=== PATIENT | male | born 1940 | race Caucasian/White ===

== ENCOUNTER 2021-09-10 13:39 | Observation (INO) | payer OTHER, SELFPAY ==
--- NOTE | 2021-09-10 13:43 | CTR_ITS ---
PROCEDURE INFORMATION: Exam: CT Head Without Contrast Exam date and time: 09/10/2021 1:47 PM Age: 81 years old Clinical indication: Injury or trauma; Fall; Blunt trauma (contusions or hematomas) TECHNIQUE: Imaging protocol: Computed tomography of the head without contrast. Radiation optimization: All CT scans at this facility use at least one of these dose optimization techniques: automated exposure control; mA and/or kV adjustment per patient size (includes targeted exams where dose is matched to clinical indication); or iterative reconstruction. COMPARISON: No relevant prior studies available. RADIATION DOSE METRICS: Total DLP (mGy-cm): 2166.72 FINDINGS: Brain: No intracranial hemorrhage. Moderate central and cortical atrophy and small vessel ischemic changes. Cerebral ventricles: No ventriculomegaly. Paranasal sinuses: Visualized sinuses are unremarkable. No fluid levels. Mastoid air cells: Visualized mastoid air cells are well aerated. Bones/joints: Unremarkable. No acute fracture. Soft tissues: Unremarkable. Vasculature: Unremarkable. CT/CT head wo con* [id number] IMPRESSION: No acute intracranial abnormality.
--- NOTE | 2021-09-10 13:57 | ED_ITS ---
HPI - General Adult General: Chief complaint: Fall Stated complaint: FELL HIT HEAD Time Seen by Provider: 09/10/21 13:57 History of Present Illness: Patient is a 81-year-old male with a history of baseline dementia, chronic arthritis of the knees presenting to the emergency room after an episode of fall. Patient was found down on the ground by please officer who called EMS and patient was brought to the emergency room. It is unclear how long patient has been down for. Baseline, patient is able to communicate and perform ADLs. However patient appears to be confused. He is AA O x1, rest of history limited. Patient denies any pain in the head or other source of injuries Onset:unknown Duration:ongoing Location:home Severity:moderate Associated symptoms: Deny chest pain, dyspnea, nausea, palpitations or vomiting Review of Systems General: Reports: ROS unobtainable due to mental status Card: Denies: chest pain or palpitations Resp: Denies: dyspnea or non-productive cough GI: Denies: abdominal pain, nausea or vomiting Musc: Denies: extremity pain Skin/Breast: Reports: other (no visible bruises or pain) Neuro: Reports: other (+confusion) Psych: Reports: other (Normal mood) [facility] ED PFSH: Medical History (Updated 09/10/21 @ 14:12 by Juan Francisco Crowe MD) Arthritis Social History (Updated 09/10/21 @ 14:12 by Juan Francisco Crowe MD) Smoking and tobacco status: unknown if ever smoked Alcohol intake: unknown Substance/Drug Use: unknown Physical Exam Const: COMMON NORMALS: alert HENMT: COMMON NORMALS: atraumatic HEAD & SCALP: atraumatic MOUTH: moist mucous membranes not abnormal Eye: COMMON NORMALS: EOMs intact bilaterally and conjunctivae normal CONJUNCTIVA: Yes conjunctivae normal Neck/C-Spine: COMMON NORMALS: full ROM and supple Resp: COMMON NORMALS: normal respiratory effort and clear to auscultation bilaterally AUSCULTATION: clear to auscultation bilaterally Cardio: COMMON NORMALS: regular rate RATE: regular rate GI: COMMON NORMALS: Soft to palpation and non-tender PALPATION: Yes Soft to palpation Extremity: COMMON NORMALS: full ROM Neuro: SENSORIUM/ORIENTATION: Yes alert MOTOR EXAM: No Abnormal motor strength present and Other motor observations present (no focal motor deficits) OTHER: AAO x1 to self only, occasionally following commands, moving all extremities, sensation grossly intact in all extremity, cranial nerves II to XII grossly intact Psych: COMMON NORMALS: speech normal SPEECH: Yes normal speech MOOD & AFFECT: Yes euthymic mood Course Vital Signs: Vital signs: Vital Signs Temperature 98.2 F 09/10/21 14:19 Pulse Rate 87 09/10/21 14:19 Respiratory Rate 95 H 09/10/21 14:19 Blood Pressure 118/79 09/10/21 14:19 Pulse Oximetry 94 09/10/21 14:19 MDM - General Adult Medical Decision Making 81-year-old male with unknown past medical history presents emergency after fall with concerns for altered mental status. On physical exam, patient is AAO x1, otherwise following commands and answer most questions appropriately. No signs of trauma. CTA negative for any acute findings. X-ray chest clear. White count 7.4.'s of lab within normal limit. Patient is noted to have acetaminophen level 7.6. We will repeat and follow. It is unclear what medication patient has been taking as we are not unable to reconcile medication at this time. We will trend acetaminophen level. UA pending at this time. Disposition: admission Lab Data : 09/10/21 15:20 09/10/21 15:[address] 09/10/21 13:43 IMPRESSION: No acute intracranial abnormality. Chest X-Ray 09/10/21 14:06 IMPRESSION: 1. No acute cardiopulmonary finding. Laboratory Results WBC 7.4 10^3/uL (4.0-10.0) 09/10/21 15:20 RBC 5.47 10^6/uL (4.1-5.3) H 09/10/21 15:20 Hgb 16.2 g/dL (11.7-16.6) 09/10/21 15:20 Hct 48.7 % (42.0-52.0) 09/10/21 15:20 MCV 89.0 fl (80-94) 09/10/21 15:20 MCH 29.6 pg (28.0-34.0) 09/10/21 15:20 MCHC 33.3 g/dL (30.0-36.0) 09/10/21 15:20 RDW 14.8 % (12.1-15.1) 09/10/21 15:20 Plt Count 267 10^3/cmm (130-400) 09/10/21 15:20 MPV 9.9 fL (7.4-10.4) 09/10/21 15:20 Neut % (Auto) 74.7 % 09/10/21 15:20 Lymph % (Auto) 15.9 % 09/10/21 15:20 Stark % (Auto) 6.3 % 09/10/21 15:20 Eos % (Auto) 2.7 % 09/10/21 15:20 Baso % (Auto) 0.1 % 09/10/21 15:20 Neut # (Auto) 5.56 10^3/uL (1.8-7.7) 09/10/21 15:20 Lymph # (Auto) 1.2 10^3/uL (0.8-4.8) 09/10/21 15:20 Stark # (Auto) 0.5 10^3/uL (0.2-0.9) 09/10/21 15:20 Eos # (Auto) 0.2 10^3/uL (0.0-0.8) 09/10/21 15:20 Baso # (Auto) 0.0 10^3/uL (0.0-0.1) 09/10/21 15:20 Nucleated RBC % (auto) 0 % 09/10/21 15:20 Nucleated RBCs # 0.0 /100WBC 09/10/21 15:20 Sodium 138 mmol/L (136-145) 09/10/21 15:20 Potassium 4.1 mmol/L (3.5-5.1) 09/10/21 15:20 Chloride 101 mmol/L (98-107) 09/10/21 15:20 Carbon Dioxide 28 mmol/L (22-29) 09/10/21 15:20 Anion Gap 13.1 (5-19) 09/10/21 15:20 BUN 16 mg/dL (8-23) 09/10/21 15:20 Creatinine 1.2 mg/dL (0.7-1.2) 09/10/21 15:20 GFR Calculation Not Reportable 09/10/21 15:20 Glucose 112 mg/dL (65-115) 09/10/21 15:20 Calculated Osmolality 288 mOsm/kg (285-295) 09/10/21 15:20 Calcium 9.3 mg/dL (8.5-10.5) 09/10/21 15:20 Total Bilirubin 0.5 mg/dL (0.15-1.2) 09/10/21 15:20 AST 21 U/L (0-40) 09/10/21 15:20 ALT 12 U/L (0-41) 09/10/21 15:20 Alkaline Phosphatase 106 IU/L (40-130) 09/10/21 15:20 Creatine Kinase 39 U/L (39-308) 09/10/21 15:20 Troponin T Baseline 33 ng/L (0-15) H 09/10/21 15:20 Total Protein 6.7 g/dL (6.6-8.7) 09/10/21 15:20 Albumin 3.9 g/dL (3.5-5.2) 09/10/21 15:20 Globulin 2.8 g/dL (1.3-4.6) 09/10/21 15:20 Lipase 39 U/L (13-60) 09/10/21 15:20 TSH 1.60 uIU/mL (0.27-4.20) 09/10/21 15:20 Salicylates < 0.3 mg/dL (3-10) L 09/10/21 15:20 Acetaminophen 6.8 ug/mL (10-30) L 09/10/21 15:20 Imaging Data Other Imaging: Radiologist's impression: [address] [address] XRay Report Signed Patient: Britton Mendoza Unit #: [id number] : 1940 Age/Sex: 81 / M ADM Date: 09/10/21 Loc: ER Room/Bed: Attending Dr: Ordering Provider/Ordering MD: Juan Francisco Crowe MD Date of Service: 09/10/21 Procedure(s): XR chest 1V portable [id number] Accession Number(s): [id number] Report Number: [id number] WS: [email or web address] Exam: XR chest 1V portable [id number] Date/Time of Exam: 09/10/2021 2:06 PM Reason For Exam: chest pain No priors. The lungs are clear and fully expanded. Normal cardiomediastinal silhouette for technique. No pleural effusions. Advanced DJD of the right shoulder. Remaining bony structures are intact. XR/XR chest 1V portable [id number] IMPRESSION: 1. No acute cardiopulmonary finding. ? Dictated By: Isrrael Hoang DO Signed By: Isrrael Hoang DO Signed Date/Time: 09/10/211423 DD/ [address] [address] [address] Scan Report Signed Patient: Britton Mendoza Unit #: [id number] : 1940 Age/Sex: 81 / M ADM Date: 09/10/21 Loc: ER Room/Bed: Attending Dr: Ordering Provider/Ordering MD: Juan Francisco Crowe MD Date of Service: 09/10/21 Procedure(s): CT head wo con* [id number] Accession Number(s): [id number] Report Number: [id number] PROCEDURE INFORMATION: Exam: CT Head Without Contrast Exam date and time: 09/10/2021 1:47 PM Age: 81 years old Clinical indication: Injury or trauma; Fall; Blunt trauma (contusions or hematomas) TECHNIQUE: Imaging protocol: Computed tomography of the head without contrast. Radiation optimization: All CT scans at this facility use at least one of these dose optimization techniques: automated exposure control; mA and/or kV adjustment per patient size (includes targeted exams where dose is matched to clinical indication); or iterative reconstruction. COMPARISON: No relevant prior studies available. RADIATION DOSE METRICS: Total DLP (mGy-cm): 2166.72 FINDINGS: Brain: No intracranial hemorrhage. Moderate central and cortical atrophy and small vessel ischemic changes. Cerebral ventricles: No ventriculomegaly. Paranasal sinuses: Visualized sinuses are unremarkable. No fluid levels. Mastoid air cells: Visualized mastoid air cells are well aerated. Bones/joints: Unremarkable. No acute fracture. Soft tissues: Unremarkable. Vasculature:? Unremarkable. CT/CT head wo con* [id number] IMPRESSION: No acute intracranial abnormality. ? Dictated By: Art Gonzalez MD Signed By: Art Gonzalez MD Signed Date/Time: 09/10/211425 Discharge Plan Discharge Patient Disposition: Admitted As Inpatient Clinical Impression: Altered mental status, Acute confusion, Fall Condition: Stable Coding Level of Care Code ED Local Flatbed Driver for Rito Fwd Exam Comprehensive
--- NOTE | 2021-09-10 14:06 | XR_ITS ---
WS: [email or web address] Exam: XR chest 1V portable [id number] Date/Time of Exam: 09/10/2021 2:06 PM Reason For Exam: chest pain No priors. The lungs are clear and fully expanded. Normal cardiomediastinal silhouette for technique. No pleural effusions. Advanced DJD of the right shoulder. Remaining bony structures are intact. XR/XR chest 1V portable [id number] IMPRESSION: 1. No acute cardiopulmonary finding.
[2021-09-10 14:19] VITALS: BP 118/79; PULSE 87; RESP 95; TEMP 36.8; O2SAT 94; BMI 37.3
[2021-09-10 15:51] LABS: Basophils % 0.1 %; Eosinophils # 0.2 10^3/uL (0.0-0.8); Eosinophils % 2.7 %; Hematocrit 48.7 % (42.0-52.0); Hemoglobin 16.2 g/dL (11.7-16.6); Lymphocytes # 1.2 10^3/uL (0.8-4.8); Lymphocytes % 15.9 %; Mean Corpuscular HGB Conc 33.3 g/dL (30.0-36.0); Mean Corpuscular Hemoglobin 29.6 pg (28.0-34.0); Mean Platelet Volume 9.9 fL (7.4-10.4); Monocytes # 0.5 10^3/uL (0.2-0.9); Monocytes % 6.3 %; Neutrophils # 5.56 10^3/uL (1.8-7.7); Neutrophils % 74.7 %; Nucleated Red Blood Cells % 0 %; Platelet Count 267 10^3/cmm (130-400); Red Blood Count 5.47 10^6/uL (4.1-5.3); Red Cell Distribution Width 14.8 % (12.1-15.1); White Blood Count 7.4 10^3/uL (4.0-10.0)
--- NOTE | 2021-09-10 16:07 | ECG_ITS ---
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 Measurements Intervals [place] Rate: 86 P: [place]: QRS: -12 QRSD: 120 T: 77 QT: 390 QTc: 467 Interpretive Statements ATRIAL FIBRILLATION MODERATE INTRAVENTRICULAR CONDUCTION DELAY [110+ ms QRS DURATION] NONSPECIFIC T-WAVE ABNORMALITY ABNORMAL RHYTHM ECG No previous ECG available for comparison Electronically Signed On 09-10-2021 20:20:43 CDT by Consuelo Arcos M.D. [email or web address]
[2021-09-10 16:30] LABS: Troponin(5th) Baseline 33 ng/L (0-15)
[2021-09-10 16:34] LABS: Acetaminophen 6.8 ug/mL (10-30); Alanine Aminotransferase 12 U/L (0-41); Albumin Level 3.9 g/dL (3.5-5.2); Alkaline Phosphatase 106 IU/L (40-130); Blood Urea Nitrogen 16 mg/dL (8-23); Calcium 9.3 mg/dL (8.5-10.5); Carbon Dioxide 28 mmol/L (22-29); Chloride 101 mmol/L (98-107); Creatine Phosphokinase 39 U/L (39-308); Globulin 2.8 g/dL (1.3-4.6); Glucose 112 mg/dL (65-115); Lipase 39 U/L (13-60); Osmolality Calculated 288 mOsm/kg (285-295); Sodium 138 mmol/L (136-145); Total Bilirubin 0.5 mg/dL (0.15-1.2); Total Protein 6.7 g/dL (6.6-8.7)
[2021-09-10 16:35] LABS: Anion Gap 13.1 (5-19); Aspartate Amino Transferase 21 U/L (0-40); Potassium 4.1 mmol/L (3.5-5.1); Salicylate < 0.3 mg/dL (3-10)
[2021-09-10 16:59] LABS: Free T4 Free Thyroxine 1.11 ng/dL (0.82-1.77)
[2021-09-10 18:35] LABS: Troponin 5 2HR 30.61 ng/L (0-15)
[2021-09-10 18:36] LABS: Ammonia 11 umol/L (16-60)
[2021-09-10 18:41] LABS: Troponin 5 2HR Delta -2.39 ABS# (0-10)
[2021-09-10 18:47] VITALS: BP 148/92; PULSE 78; RESP 16; O2SAT 95
--- NOTE | 2021-09-10 18:56 | P.HP_ITS ---
Providers/Chief Complaint Admitting Physician: Amadou Gould Chief Complaint: FELL HIT HEAD History of Present Illness Pleasant 81-year-old gentleman with remote history of depression, remote history of hypertension, states currently not taking any medications, lives by himself, without any family in the area, but states has a caregiver coming to his home, was found down on the floor by motorized squad commanding officer on a wellness check and brought in by EMS, had hazy recollection as to what had happened, although during my visit is oriented x3, initially does not remember how he got to the hospital, on additional discussion remembers getting up from the bed, sleeping down on the floor on some water from somewhere , and falling down. Denies any syncope. He states otherwise has been feeling well recently, denies any issues. Blood pr essure noted elevated in ER, 180/119. Reports he is not on anything for hypertension, states he does not currently take any medications and has not been to see a doctor in a kyle age . He was down for an unknown amount of time. Does remember hitting his head on the edge of the bed. CT of the head obtained in ER without acute abnormality. On trauma assessment in ER not found to have any signs of other trauma, and moving all extremities. As he lives alone, is having trouble providing history with possible mental status changes, with a fall, additional observation was requested. At home he walks with a cane. He tells me that he is . He states that he had 10 children, but many of them had . The remaining children live somewhere in [place]. He is not in contact with them. Review of Systems Const: Denies: fever(s), chills, body aches or malaise Eyes: Denies: change in vision, eye discomfort or eye redness ENMT: Denies: throat pain, oral sores or ear or mastoid pain Card: Denies: chest pain, edema, pre-syncope or dyspnea on exertion Resp: Denies: dyspnea, productive cough, change in phlegm color or hemoptysis GI: Denies: abdominal pain, nausea, vomiting, diarrhea, constipation, hematochezia or melena : Denies: flank pain, difficulty urinating, urinary frequency or hematuria Musc: Denies: back pain, joint swelling or joint redness Skin/Breast: Denies: rash or new lesions Neuro: Denies: headache(s), numbness in extremities, weakness in extremities, dizziness, confusion or seizure-like activity Endo: Denies: polyuria or polydipsia Marcelo/Lymph: Denies: easy bleeding or tender lymph nodes All/Imm: Denies: urticaria or tongue swelling Medications/Allergies Home Medications Medication Instructions Recorded Confirmed Last Taken Type No Known Home Medications 09/10/21 09/10/21 Unknown History Allergies Allergy/AdvReac Type Severity Reaction Status Date / Time Penicillins Allergy Unknown Unknown Verified 09/10/21 14:41 PFSH Acute PFSH: Medical History (Updated 09/10/21 @ 19:36 by Amadou Gould MD) Arthritis Depression HTN (hypertension) Surgical History No significant past surgical history Family History Other No significant family history Social History Smoking and tobacco status: former smoker Alcohol intake: never Substance/Drug Use: never Lives independently: Yes Household members: none Marital status: / Number of children: 10 Vitals/I&O/Wt Last Vital Signs Temp 98.2 F 09/10/21 14:19 Pulse 78 09/10/21 18:47 Resp 16 09/10/21 18:47 BP 148/92 09/10/21 18:47 Pulse Ox 95 09/10/21 18:47 Weight last 48 hrs Weight 124.738 kg Physical Exam Const: COMMON NORMALS: alert GENERAL APPEARANCE: cooperative NUTRITIONAL APPEARANCE: obese ORIENTATION/CONSCIOUSNESS: Yes awake and Yes Other orientation findings (Oriented, but does not know how he got to hospital) OTHER: [place] HENMT: COMMON NORMALS: normocephalic, EAC's normal, Normal external nose present and moist oral mucous membranes HEAD & SCALP: normocephalic NOSE: Normal external nose present EXTERNAL AUDITORY CANAL: EAC's normal Neck/C-Spine: COMMON NORMALS: no meningeal signs Chest: CHEST: Yes Symmetrical chest wall rise Resp: COMMON NORMALS: clear to auscultation bilaterally AUSCULTATION: clear to auscultation bilaterally Cardio: COMMON NORMALS: regular rate, regular rhythm and No murmurs present (Cardio) RATE: regular rate RHYTHM: regular rhythm GI: COMMON NORMALS: Normal to inspection, nondistended, normoactive bowel sounds present, Soft to palpation and non-tender PALPATION: Yes Soft to palpation Extremity: COMMON NORMALS: no pedal edema Neuro: COMMON NORMALS: moves all extremities SENSORIUM/ORIENTATION: Yes alert MENINGEAL SIGNS: Yes no meningeal signs Psych: COMMON NORMALS: mental status grossly normal Skin: COMMON NORMALS: no wounds RASHES: no rashes Data : 09/10/21 15:20 09/10/21 15:20 A&P Assessment and plan (1) Fall: He states perhaps slipped on some water, although he did not remember surrounding circumstances. Will monitor in the hospital, follow-up UA. Assess with PT, OT given he lives alone without social support and was found on wellness check by police, we will also request assessment by case management. Does remember hitting his head on the edge of the bed. Plain CT of the head unremarkable. States normally ambulates with a [place] cane. Status: Acute (2) Acute confusion: Appears to have transient confusion, check UA. Status: Acute (3) HTN (hypertension): Blood pressure elevated in ER up to 180/119. Appears may have untreated hypertension he states does not take any medications at home. Start cardiac diet, monitor blood pressure. Status: Acute Attestations Medical Necessity Statement*: Place in observation for additional assessment and management after a fall with head injury, uncontrolled hypertension in a gentleman living alone. Coding Level of Care Code Acute Computer Aided Drafter for Rito Fwd Exam Comprehensive Diagnoses Fall W19.XXXA Acute confusion R41.0 HTN (hypertension) I10
[2021-09-10 20:13] VITALS: BP 157/98; PULSE 87; RESP 20; TEMP 36.9; O2SAT 97
[2021-09-10] MEDS: sodium chloride 0.9% 1,000 ML 100 ML IV (20:33)
[2021-09-10 23:11] VITALS: PULSE 94
[2021-09-11] VITALS (11 sets, daily range): BP systolic 115–148; BP diastolic 79–95; PULSE 61–155; RESP 17–22; TEMP 36.4–37.2; O2SAT 92–97
[2021-09-11 00:30] LABS: Add Urine Microscopic? NO; Charge for UA Resulting for Rev
[2021-09-11 00:35] LABS: Bilirubin Urine 1+ (Negative); Blood Urine Neg (Negative); Glucose Urine UA Norm (Normal); Ketones Urine Negative (Negative); Leukocyte Esterase Urine Negative (Negative); Nitrate Urine Negative (Negative); Protein Urine Neg (Negative); Specific Gravity, Urine 1.025 (1.005-1.030); Urine Appearance Clear (CLEAR); Urine Color Yellow (Yellow); Urobilinogen Urine Norm (Negative); pH Urine 5 (5-7)
[2021-09-11 05:38] LABS: Basophils % 0.2 %; Eosinophils # 0.4 10^3/uL (0.0-0.8); Eosinophils % 7.7 %; Hematocrit 45.1 % (42.0-52.0); Hemoglobin 14.2 g/dL (11.7-16.6); Lymphocytes # 1.5 10^3/uL (0.8-4.8); Lymphocytes % 26.9 %; Mean Corpuscular HGB Conc 31.5 g/dL (30.0-36.0); Mean Corpuscular Hemoglobin 29.6 pg (28.0-34.0); Mean Platelet Volume 9.8 fL (7.4-10.4); Monocytes # 0.5 10^3/uL (0.2-0.9); Monocytes % 8.4 %; Neutrophils # 3.13 10^3/uL (1.8-7.7); Neutrophils % 56.3 %; Nucleated Red Blood Cells % 0 %; Platelet Count 207 10^3/cmm (130-400); Red Cell Distribution Width 15.1 % (12.1-15.1); White Blood Count 5.6 10^3/uL (4.0-10.0)
[2021-09-11] MEDS: sodium chloride 0.9% 1,000 ML 100 ML IV (05:52)
[2021-09-11 06:13] LABS: Alanine Aminotransferase 10 U/L (0-41); Alkaline Phosphatase 87 IU/L (40-130); Anion Gap 14.7 (5-19); Aspartate Amino Transferase 17 U/L (0-40); Blood Urea Nitrogen 15 mg/dL (8-23); Calcium 8.5 mg/dL (8.5-10.5); Carbon Dioxide 24 mmol/L (22-29); Chloride 105 mmol/L (98-107); Globulin 3.3 g/dL (1.3-4.6); Glucose 108 mg/dL (65-115); Osmolality Calculated 291 mOsm/kg (285-295); Potassium 3.7 mmol/L (3.5-5.1); Sodium 140 mmol/L (136-145); Total Bilirubin 0.4 mg/dL (0.15-1.2); Total Protein 6.3 g/dL (6.6-8.7)
--- NOTE | 2021-09-11 10:24 | PC.CHAP ---
Pastoral Care Encounter/Spiritual Assessment Type of Contact [] Declined business consultant visit [] Patient/Family/Request visit [] Outpatient visit [] Follow-up visit [] Physician referral [] Code/Alert [x] Routine visit [] Staff referral [] Actively dying [] Patient sleeping [] Family support [] [] Out of room [] Palliative care [] [x] Receiving care in room [] Pre-surgical visit [] Trauma [] Long length of stay [] ICU visit [] Other: Relational/Emotional Strength [] Patient feels connected with others/family/visitors/staff [] Distress [] Loneliness/isolation [] Abandonment Spirituality of Patient [] Person of Kim [] Attends Bahai of their Kim [] Believes in Prayer [] Reads Bible or Sabianism materials [] There are Spiritual issues to be addressed Bath Solution Maker Interventions [] Prayer [] Active listening [] Non-anxious presence [] Spiritual/emotional support [] Crisis/trauma care [] Spiritual counseling [] Bereavement support [] Provided bereavement packet [] Provided Bible/devotional materials [] Provided toy/stuffed animal, coloring book to patient or family member [] Provided Communion [] Anointing/Carter [] Salvation [] Completed spiritual assessment [] Other: Impact on Illness or Injury [] Angry [] Fearful [x] Anxious [] Often cries [] Exhaustion [] Unable to work [] Unable to attend mandaen [] Unable to walk/stand [] Unable to read [] Unable to drive [] Unable to eat/drink [] Unable to sleep [] Unable to be with family [] Patient intubated [] Other: Summary waiting on tests doesn't know about his health well go home at some point Time spent with patient 10mins
--- NOTE | 2021-09-11 12:52 | P.PN_ITS ---
Subjective Subjective: He tells me that he is feeling well, and that nothing is bothering him. Asking him if he knows where he is, states yes. Asking him where, he seems to think he is in an apartment complex. Telling him he is in the hospital he is surprised, states how did I get here . He is not remember being brought in by EMS to the hospital. He states that he remembers seeing me yesterday. He does not remember falling down. He history to me he had stated that he had slipped on some water and getting up from bed. He had reportedly told he had difficulty getting up from the toilet with his knees being weak. Asking him about his health recently he states has been doing great. He is telling me that he does not have any family in the area. He lives alone. 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 He tells me his land was adjacent to a wide [place] [employer] area, which was later sold by his son, but cannot tell me the location of where that is. Asking him regarding contact with his children, he states he has 1 biological son himself, asking the name states Jamshid Mendoza. Asking if he notices contact, he states does not know if his son has a phone. States that his son is a electron beam welder setter. He is not sure where his son is now. He is not in touch with his other children who were from his , states they did not do wrong by him, he just gives them their space. Discussing him being found down on a wellness check, he does not recall any surrounding details. Discussing with him concerned that it may not be safe for him to be at home by himself, he dismisses any concerns, states he is doing great. Vitals/I&O/Wt Last Vital Signs Temp 98.2 F 09/11/21 11:11 Pulse 75 09/11/21 11:11 Resp 17 09/11/21 11:11 BP 137/91 09/11/21 11:11 Pulse Ox 94 09/11/21 11:11 09/10/21 09/11/2109/11/22 22:59 06:59 14:59 Intake Total 360 / 360 1411.667 / 1771.667 240 / 240 Output Total 250 / 250 Balance 360 / 360 1161.667 / 1521.667 240 / 240 Weight last 48 hrs Weight 124.738 kg Physical Exam Const: COMMON NORMALS: alert GENERAL APPEARANCE: cooperative NUTRITIONAL APPEARANCE: obese ORIENTATION/CONSCIOUSNESS: Yes awake, Yes oriented to person and Yes oriented to time (year); not oriented to place OTHER: [facility] HENMT: COMMON NORMALS: normocephalic, EAC's normal, Normal external nose present and moist oral mucous membranes HEAD & SCALP: normocephalic NOSE: Normal external nose present EXTERNAL AUDITORY CANAL: EAC's normal Neck/C-Spine: COMMON NORMALS: no meningeal signs Chest: CHEST: Yes Symmetrical chest wall rise Resp: COMMON NORMALS: clear to auscultation bilaterally AUSCULTATION: clear to auscultation bilaterally Cardio: COMMON NORMALS: regular rate, regular rhythm and No murmurs present (Cardio) RATE: regular rate RHYTHM: regular rhythm GI: COMMON NORMALS: Normal to inspection, nondistended, normoactive bowel sounds present, Soft to palpation and non-tender PALPATION: Yes Soft to palpation Extremity: COMMON NORMALS: no pedal edema Neuro: COMMON NORMALS: moves all extremities SENSORIUM/ORIENTATION: Yes alert, Yes oriented to person, No oriented to place and Yes oriented to time (year) MENINGEAL SIGNS: Yes no meningeal signs Psych: COMMON NORMALS: mental status grossly normal Skin: COMMON NORMALS: no wounds RASHES: no rashes Data : 09/11/21 04:53 09/11/21 04:53 A&P Assessment and plan (1) Acute confusion: He is very pleasant and conversant. He appears to be having difficulties with short-term memory, although tells me historical details from more distant past. Does not appear to have acute infection or metabolic abnormality on work-up so far. Additional studies included UA, unremarkable. TSH normal. He is noted to be in atrial fibrillation incidentally. Concerning part is that he appears to have lack of memory or understanding that he was found down on a wellness check, and this does not appear to concern him or give concern whether it may happen again. Will obtain PT, OT evaluation. Consider evaluation by psychiatry to see if they elicit similar findings. Discussed with case management, we will try to see if we can find a way to contact his son, Jamshid Mendoza. He does not want to get in touch with his other children, but does not mind getting in touch with son Jamshid (if we can find him). As he was found on the ground, question is whether he may have hit his head, he has been providing inconsistent history, and does not remember falling today. Yesterday he claimed that he may have hit his head, but not sure. CT of the head without acute abnormality. Status: Acute (2) Atrial fibrillation by electrocardiography: Incidentally noted atrial fibrillation, I just got a call about brief episode of tachycardia over about 10 minutes up to 140s, irregular, atrial fibrillation with RVR. Start metoprolol. Given fall, questionable safety awareness, anticoagulation would not be safe at this time, perhaps aspirin could be considered but with similar concerns. Status: Acute (3) Fall: Does not recall falling down or how he ended up in the hospital. Appears to give different story to different people, to me he said he may have slipped on some water getting out of bed. Case management he had said he just got weak and his knees try to get up from the toilet. PT, OT assessment. Orthostatics were okay. Unremarkable UA. Does remember hitting his head on the edge of the bed. Plain CT of the head unremarkable. States normally ambulates with a [place] cane. Status: Acute (4) HTN (hypertension): Blood pressures have been better, mostly staying 130s-140s over 80s-90s. Appears may have untreated hypertension he states does not take any medications at home. Cardiac diet, monitor blood pressure. Metoprolol as above. Status: Acute Attestations Medical Necessity Statement*: Continue observation for additional assessment due to memory deficits, found down at home, gentleman with limited social support, optimization of control of paroxysmal A. fib with RVR. Disposition planning. Coding Level of Care Code Acute Habilitation Specialist for Chg Fwd Diagnoses Fall W19.XXXA Acute confusion R41.0 HTN (hypertension) I10 Atrial fibrillation by electrocardiography I48.91
--- NOTE | 2021-09-11 13:07 | ECG_ITS ---
[facility] Test Date: 2021-09-11 Pat Name: Britton Mendoza Department: Room: 253 Gender: Male Wellness Director: : 1940 Requested By: Amadou Gould Order Number: [id number] Reading MD: Jamshid Shankar M.D. Measurements Intervals [place] Rate: 101 P: DC: QRS: -19 QRSD: 110 T: 90 QT: 362 QTc: 470 Interpretive Statements ATRIAL FIBRILLATION WITH RAPID VENTRICULAR RESPONSE WITH ABERRANT CONDUCTION OR VENTRICULAR PREMATURE COMPLEXES MODERATE ST DEPRESSION [0.05+ mV ST DEPRESSION] Compared to ECG 09/10/2021 17:57:21 Ventricular premature complex(es) now present Aberrant conduction of supraventricular beat(s) now present ST (T wave) deviation now present Intraventricular conduction delay no longer present T-wave abnormality no longer present Electronically Signed On 09-11-2021 15:21:44 CDT by Jamshid Shankar M.D. [id number]
[2021-09-11] MEDS: metoprolol tartrate 25 mg Tablet PO ×2 (14:32→20:03)
--- NOTE | 2021-09-11 18:24 | PC.NURSE ---
Addendum entered by Mary Erazo RN 09/11/21 18:35: Optifoam placed to right buttock for moisture skin damage breakdown. Open unattached area with minimal slough. Original Note: Patient AAOx4, HR has fluctuated throughout shift and had a rhythm change that physician is aware of and orders placed. Patient has been OOBT bedside commode with max assist. Room is clean and clutter free with call light in reach. No other new events. Good UOP and tolerating diet. Will report to oncoming nurse at shift change.
[2021-09-12] VITALS (10 sets, daily range): BP systolic 130–155; BP diastolic 72–88; PULSE 59–81; RESP 16–22; TEMP 36.4–36.9; O2SAT 93–100
[2021-09-12] MEDS: metoprolol tartrate 25 mg Tablet PO ×2 (08:28→20:44)
--- NOTE | 2021-09-12 16:35 | XRR_ITS ---
PROCEDURE INFORMATION: Exam: XR Right Shoulder Exam date and time: 09/12/2021 5:00 PM Age: 81 years old Clinical indication: Pain and injury or trauma; Fall; Blunt trauma (contusions or hematomas); Shoulder; Right; Additional info: Pain w prom, recent fall TECHNIQUE: Imaging protocol: XR Right shoulder. Views: 2 or more views. COMPARISON: CR XR chest 1V portable [id number] 09/10/2021 2:19 PM FINDINGS: Bones/joints: Sclerosis, joint space narrowing and bone spurring is seen within the right acromioclavicular joint and glenohumeral joint compatible with osteoarthritic changes. These findings are similar to those present on 09/10/2021. Soft tissues: Normal. 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
--- NOTE | 2021-09-12 16:36 | P.PN_ITS ---
Subjective Subjective: He denies any pain or discomfort. No trouble breathing. He has been having pain in his right shoulder with elevation of the arm. Vitals/I&O/Wt Last Vital Signs Temp 98.1 F 09/12/21 15:26 Pulse 62 09/12/21 15:26 Resp 18 09/12/21 15:26 BP 143/72 09/12/21 15:26 Pulse Ox 93 09/12/21 15:26 09/12/21 09/12/21 09/12/21 06:59 14:59 22:59 Intake Total 680 / 2471.667 420 / 420 Output Total 200 / 700 Balance 480 / 1771.667 420 / 420 Physical Exam Const: COMMON NORMALS: alert GENERAL APPEARANCE: cooperative NUTRITIONAL APPEARANCE: obese ORIENTATION/CONSCIOUSNESS: Yes awake OTHER: [place] HENMT: COMMON NORMALS: normocephalic, EAC's normal, Normal external nose pr esent and moist oral mucous membranes HEAD & SCALP: normocephalic NOSE: Normal external nose present EXTERNAL AUDITORY CANAL: EAC's normal Neck/C-Spine: COMMON NORMALS: no meningeal signs Chest: CHEST: Yes Symmetrical chest wall rise Resp: COMMON NORMALS: clear to auscultation bilaterally AUSCULTATION: clear to auscultation bilaterally Cardio: COMMON NORMALS: regular rate, regular rhythm and No murmurs present (Cardio) RATE: regular rate RHYTHM: regular rhythm GI: COMMON NORMALS: Normal to inspection, nondistended, normoactive bowel sounds present, Soft to palpation and non-tender PALPATION: Yes Soft to palpation Extremity: COMMON NORMALS: no pedal edema Neuro: COMMON NORMALS: moves all extremities SENSORIUM/ORIENTATION: Yes alert MENINGEAL SIGNS: Yes no meningeal signs Psych: COMMON NORMALS: mental status grossly normal Skin: COMMON NORMALS: no wounds RASHES: no rashes Data : 09/11/21 04:53 09/11/21 04:53 A&P Assessment and plan (1) Acute confusion: Likely chronic process like dementia. With noted prior consideration of guardianship at [place]. Did not do well on living skills evaluation with OT, showing unable to live at home independently. Recommendation for SNF. CM working with him. He is very pleasant and conversant. He is having difficulties with short-term memory, although tells me historical details from more distant past. Does not appear to have acute infection or metabolic abnormality on work-up so far. Additional studies included UA, unremarkable. TSH normal. He is noted to be in atrial fibrillation incidentally. Concerning part is that he appears to have lack of memory or understanding that he was found down on a wellness check, and this does not appear to concern him or give concern whether it may happen again. Discussed with case management, we will try to see if we can find a way to contact his son, Jamshid Mendoza. He does not want to get in touch with his other children, but does not mind getting in touch with son Jamshid (if we can find him). As he was found on the ground, question is whether he may have hit his head, he has been providing inconsistent history, and does not remember falling today. Yesterday he claimed that he may have hit his head, but not sure. CT of the head without acute abnormality. Status: Acute (2) Atrial fibrillation by electrocardiography: Incidentally noted atrial fibrillation, on 09/11 brief episode of tachycardia over about 10 minutes up to 140s, irregular, atrial fibrillation with RVR. Started on metoprolol, heart rates without further elevation, remains in the 60s and 70s. Given fall, questionable safety awareness, anticoagulation would not be safe at this time, perhaps aspirin could be considered but with similar concerns. Status: Acute (3) Fall: Does not recall falling down or how he ended up in the hospital. Appears to give different story to different people, to me he said he may have slipped on some water getting out of bed. Case management he had said he just got weak and his knees try to get up from the toilet. PT, OT Orthostatics were okay. Unremarkable UA. Does remember hitting his head on the edge of the bed. Plain CT of the head unremarkable. States normally ambulates with a [place] cane. Status: Acute (4) HTN (hypertension): Started on metoprolol. Blood pressures are better. Monitor. Cardiac diet, monitor blood pressure. Metoprolol as above. Status: Acute (5) Shoulder pain: Shoulder pain with elevation of the right arm, active or passive. With recently being found on the floor, will image additionally with x-ray. Status: Acute Attestations Medical Necessity Statement*: Continue specialization for assessment of management after being found down at home on a wellness check, and gentleman living alone, with progressive inability to function independently. Coding Level of Care Code Acute Information Technology Internship for Chg Fwd Diagnoses Acute confusion R41.0 Atrial fibrillation by electrocardiography I48.91 Fall W19.XXXA HTN (hypertension) I10 Shoulder pain M25.519
--- NOTE | 2021-09-12 17:50 | PC.NURSE ---
Patient resting in bed, alert and confused oriented to self and place. VSS, loose stools throughout day and incontinent. Patient has been more confused today than yesterday. Room clean and clutter free with call light in reach. Will report to oncoming nurse at bedside at shift change.
[2021-09-13] VITALS (10 sets, daily range): BP systolic 117–161; BP diastolic 64–84; PULSE 54–79; RESP 13–18; TEMP 36.4–36.8; O2SAT 93–96
[2021-09-13 05:03] LABS: Folate Level 11.2 ng/mL (4.5-32.2); Vitamin B12 195 pg/mL (232-1245)
[2021-09-13] MEDS: metoprolol tartrate 25 mg Tablet PO ×2 (09:38→20:09)
--- NOTE | 2021-09-13 18:44 | PM.PN ---
Subjective Subjective: Denies pain or discomfort, no changes in the right shoulder, pain with lifting the arm. He appears to know that he is in the hospital, tells me the year, thinks it is August. Asks me what they are saying is in his left arm, pointing to the IV catheter. Vitals/I&O/Wt Last Vital Signs Temp 98 F 09/13/21 12:00 Pulse 54 L 09/13/21 16:00 Resp 14 09/13/21 12:00 BP 125/70 09/13/21 16:00 Pulse Ox 95 09/13/21 16:00 09/13/21 09/13/21 09/13/21 06:59 14:59 22:59 Intake Total 420 / 1560 500 / 500 240 / 740 Output Total 750 / 950 Balance -330 / 610 500 / 500 240 / 740 Physical Exam Const: COMMON NORMALS: alert GENERAL APPEARANCE: cooperative NUTRITIONAL APPEARANCE: obese ORIENTATION/CONSCIOUSNESS: Yes awake OTHER: [place] HENMT: COMMON NORMALS: normocephalic, EAC's normal, Normal external nose present and moist oral mucous membranes HEAD & SCALP: normocephalic NOSE: Normal external nose present EXTERNAL AUDITORY CANAL: EAC's normal Neck/C-Spine: COMMON NORMALS: no meningeal signs Chest: CHEST: Yes Symmetrical chest wall rise Resp: COMMON NORMALS: clear to auscultation bilaterally AUSCULTATION: clear to auscultation bilaterally Cardio: COMMON NORMALS: regular rate, regular rhythm and No murmurs present (Cardio) RATE: regular rate RHYTHM: regular rhythm GI: COMMON NORMALS: Normal to inspection, nondistended, normoactive bowel sounds present, Soft to palpation and non-tender PALPATION: Yes Soft to palpation Extremity: COMMON NORMALS: no pedal edema Neuro: COMMON NORMALS: moves all extremities SENSORIUM/ORIENTATION: Yes alert MENINGEAL SIGNS: Yes no meningeal signs Psych: COMMON NORMALS: mental status grossly normal Skin: COMMON NORMALS: no wounds RASHES: no rashes Data : 09/11/21 04:53 09/11/21 04:53 A&P Assessment and plan (1) Acute confusion: Additional information again pointing to more chronic progressive cognitive decline from caregiver, patient has not been getting out of bed now in a while, at times soiling himself in the bed. Checked also B12 and folic acid. Folate normal but B12 low at 195. B12 replacement requested. Likely chronic process like dementia. With noted prior consideration of guardianship at [place]. Did not do well on living skills evaluation with OT, showing unable to live at home independently. Recommendation for SNF. CM working with him. He is very pleasant and conversant. He is having difficulties with short-term memory, although tells me historical details from more distant past. Does not appear to have acute infection or metabolic abnormality on work-up so far. Additional studies included UA, unremarkable. TSH normal. He is noted to be in atrial fibrillation incidentally. Concerning part is that he appears to have lack of memory or understanding that he was found down on a wellness check, and this does not appear to concern him or give concern whether it may happen again. Discussed with case management, we will try to see if we can find a way to contact his son, Jamshid Mendoza. He does not want to get in touch with his other children, but does not mind getting in touch with son Jamshid (if we can find him). As he was found on the ground, question is whether he may have hit his head, he has been providing inconsistent history, and does not remember falling today. Yesterday he claimed that he may have hit his head, but not sure. CT of the head without acute abnormality. Status: Acute (2) Atrial fibrillation by electrocardiography: Incidentally noted atrial fibrillation, on 09/11 brief episode of tachycardia over about 10 minutes up to 140s, irregular, atrial fibrillation with RVR. Started on metoprolol, heart rates without further elevation, remains in the 60s and 70s. Given fall, questionable safety awareness, anticoagulation would not be safe at this time, perhaps aspirin could be considered but with similar concerns. Status: Acute (3) Fall: Does not recall falling down or how he ended up in the hospital. Appears to give different story to different people, to me he said he may have slipped on some water getting out of bed. Case management he had said he just got weak and his knees try to get up from the toilet. PT, OT Orthostatics were okay. Unremarkable UA. Does remember hitting his head on the edge of the bed. Plain CT of the head unremarkable. States normally ambulates with a [place] cane. Status: Acute (4) HTN (hypertension): Started on metoprolol. Blood pressures are better. Monitor. Cardiac diet, monitor blood pressure. Metoprolol as above. Status: Acute (5) Shoulder pain: Shoulder pain with elevation of the right arm, active or passive. With recently being found on the floor, will image additionally with x-ray. Status: Acute Attestations Medical Necessity Statement*: Continue additional assessment of progressive functional decline, progressive cognitive decline dramatically suspected progressive dementia, unable to care for self at home, start B12 replacement, assess right shoulder pain after fall, post discharge planning and arrangements. Coding Level of Care Code Acute External Relations Manager for Iqrag Robert Diagnoses Acute confusion R41.0 Atrial fibrillation by electrocardiography I48.91 Fall W19.XXXA HTN (hypertension) I10 Shoulder pain M25.519
--- NOTE | 2021-09-13 19:19 | PC.NURSE ---
Patient rested in bed throughout day, confusion increased throughout shift and seems to have worsened over last couple of days. Poor historian when answering questions, forgets limitations, bed alarm on and yellow socks in place, room clean and clutter free with call light in reach. Not capable of turns as well has previous shifts. Incontinent of B&B. Continues to have loose stools. No new events. Report given bedside to oncoming nurse.
[2021-09-13] MEDS: cyanocobalamin 1,000 mcg/mL SDV 1000 MCG IM (20:09)
[2021-09-14 04:00] VITALS: BP 150/80; PULSE 70; RESP 17; TEMP 36.3; O2SAT 94
--- NOTE | 2021-09-14 06:43 | PC.NURSE ---
SHIFT SUMMARY Pt is confused and very poor short term memory. 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 He will ask me where on earth he is and when I tell him again that he is is the hospital because he fell he says he does not remember that at all and gives me a stunned look. Has been told several times tonight. Is incont of urine and had a BM tonight. Occ will use the urinal if is assisted in time.
[2021-09-14 08:00] VITALS: BP 154/78; PULSE 77; RESP 17; TEMP 36.7; O2SAT 96
[2021-09-14] MEDS: cyanocobalamin 1,000 mcg/mL SDV 1000 MCG IM (10:04)
[2021-09-14] MEDS: metoprolol tartrate 25 mg Tablet PO ×2 (10:04→20:30)
[2021-09-14 12:00] VITALS: BP 134/81; PULSE 78; RESP 17; TEMP 36.8; O2SAT 94
--- NOTE | 2021-09-14 13:58 | P.PN_ITS ---
Subjective Subjective: He reports he is doing all right. Denies any chest pain pressure. No pain or discomfort otherwise. When asked about his shoulder, states is bothered by pain in it when using the arm. When asked about a month, again states may. Is very surprised when he was told that it is September. Vitals/I&O/Wt Last Vital Signs Temp 98.3 F 09/14/21 12:00 Pulse 78 09/14/21 12:00 Resp 17 09/14/21 12:00 BP 134/81 09/14/21 12:00 Pulse Ox 94 09/14/21 12:00 09/13/21 09/14/21 09/14/21 22:59 06:59 14:59 Intake Total 240 / 740 200 / 940 240 / 240 Output Total 150 / 150 Balance 240 / 740 50 / 790 240 / 240 Physical Exam Const: COMMON NORMALS: alert GENERAL APPEARANCE: cooperative NUTRITIONAL APPEARANCE: obese ORIENTATION/CONSCIOUSNESS: Yes awake OTHER: [place] HENMT: COMMON NORMALS: normocephalic, EAC's normal, Normal external nose present and moist oral mucous membranes HEAD & SCALP: normocephalic NOSE: Normal external nose present EXTERNAL AUDITORY CANAL: EAC's normal Neck/C-Spine: COMMON NORMALS: no meningeal signs Chest: CHEST: Yes Symmetrical chest wall rise Resp: COMMON NORMALS: clear to auscultation bilaterally AUSCULTATION: clear to auscultation bilaterally Cardio: COMMON NORMALS: regular rate, regular rhythm and No murmurs present (C ardio) RATE: regular rate RHYTHM: regular rhythm GI: COMMON NORMALS: Normal to inspection, nondistended, normoactive bowel sounds present, Soft to palpation and non-tender PALPATION: Yes Soft to palpation Extremity: COMMON NORMALS: no pedal edema Neuro: COMMON NORMALS: moves all extremities SENSORIUM/ORIENTATION: Yes alert MENINGEAL SIGNS: Yes no meningeal signs Psych: COMMON NORMALS: mental status grossly normal Skin: COMMON NORMALS: no wounds RASHES: no rashes Data : 09/11/21 04:53 09/11/21 04:53 A&P Assessment and plan (1) Acute confusion: Again noted short-term memory deficits. Relatively better long-term memory. Additional information again pointing to more chronic progressive cognitive decline from caregiver, patient has not been getting out of bed now in a while, at times soiling himself in the bed. Checked also B12 and folic acid. Folate normal but B12 low at 195. B12 replacement requested. Likely chronic process like dementia. With noted prior consideration of guardianship at [place]. Did not do well on living skills evaluation with OT, showing unable to live at home independently. Recommendation for SNF. CM working with him. He is very pleasant and conversant. He is having difficulties with short-term memory, although tells me historical details from more distant past. Does not appear to have acute infection or metabolic abnormality on work-up so far. Additional studies included UA, unremarkable. TSH normal. He is noted to be in atrial fibrillation incidentally. Concerning part is that he appears to have lack of memory or understanding that he was found down on a wellness check, and this does not appear to concern him or give concern whether it may happen again. Discussed with case management, we will try to see if we can find a way to contact his son, Jamshid Mendoza. He does not want to get in touch with his other children, but does not mind getting in touch with son Jamshid (if we can find him). As he was found on the ground, question is whether he may have hit his head, he has been providing inconsistent history, and does not remember falling today. Yesterday he claimed that he may have hit his head, but not sure. CT of the head without acute abnormality. Status: Acute (2) Atrial fibrillation by electrocardiography: Incidentally noted atrial fibrillation, on 09/11 brief episode of tachycardia over about 10 minutes up to 140s, irregular, atrial fibrillation with RVR. Started on metoprolol, heart rates without further elevation, remains in the 60s and 70s. Given fall, questionable safety awareness, anticoagulation would not be safe at this time, perhaps aspirin could be considered but with similar concerns. Status: Acute (3) Fall: Does not recall falling down or how he ended up in the hospital. Appears to give different story to different people, to me he said he may have slipped on some water getting out of bed. Case management he had said he just got weak and his knees try to get up from the toilet. PT, OT Orthostatics were okay. Unremarkable UA. Does remember hitting his head on the edge of the bed. Plain CT of the head unremarkable. States normally ambulates with a [place] cane. Status: Acute (4) HTN (hypertension): Started on metoprolol. Blood pressures are better. Monitor. Cardiac diet, monitor blood pressure. Metoprolol as above. Status: Acute (5) Shoulder pain: Shoulder pain with elevation of the right arm, active or passive. 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 Status: Acute Attestations Medical Necessity Statement*: Continue hospitalization for reassessment of progressive functional decline, inability to live independently while living alone, B12 replacement, post discharge planning. Coding Level of Care Code Acute [employer] Liaison Officer for [facility] Fwd Diagnoses Acute confusion R41.0 Atrial fibrillation by electrocardiography I48.91 Fall W19.XXXA HTN (hypertension) I10 Shoulder pain M25.519
[2021-09-14 16:00] VITALS: BP 137/83; PULSE 70; RESP 17; TEMP 36.7; O2SAT 95
[2021-09-14 20:00] VITALS: BP 138/81; PULSE 68; RESP 17; TEMP 36.4; O2SAT 97
[2021-09-15] VITALS (7 sets, daily range): BP systolic 106–127; BP diastolic 70–81; PULSE 62–83; RESP 16–19; TEMP 36.3–36.8; O2SAT 94–96
[2021-09-15] MEDS: cyanocobalamin 1,000 mcg/mL SDV 1000 MCG IM (08:00)
[2021-09-15] MEDS: metoprolol tartrate 25 mg Tablet PO ×2 (08:01→20:40)
--- NOTE | 2021-09-15 16:01 | W.PM.PSYCONS ---
Providers/Reason for Consult Consulting Physican/Specialty*: Peewee Tsai MD/psychiatrist Reason for Consult*: Assist in Determination of mental capacity Attending Physician: Amadou Gould Psych Consult HPI History of Present Illness Britton Mendoza is a 81 year old male Who is admitted to the medical surgical floor with the following report: History of Present Illness Pleasant 81-year-old gentleman with remote history of depression, remote history of hypertension, states currently not taking any medications, lives by himself, without any family in the area, but states has a caregiver coming to his home, was found down on the floor by railroad police officer on a wellness check and brought in by EMS, had hazy recollection as to what had happened, although during my visit is oriented x3, initially does not remember how he got to the hospital, on additional discussion remembers getting up from the bed, sleeping down on the floor on some water from somewhere , and falling down.? Denies any syncope.? He states otherwise has been feeling well recently, denies any issues.? Blood pressure noted elevated in ER, 180/119.? Reports he is not on anything for hypertension, states he does not currently take any medications and has not been to see a doctor in a kyle age . He was down for an unknown amount of time.? Does remember hitting his head on the edge of the bed.? CT of the head obtained in ER without acute abnormality.? On trauma assessment in ER not found to have any signs of other trauma, and moving all extremities. As he lives alone, is having trouble providing history with possible mental status changes, with a fall, additional observation was requested. I am seeking him to assist with the termination of medical capacity. He tells me that he is living in the hospital. He says that he has been here for several months and will be here until he dies. He says he spent his birthday here on [birth year]. He knows that it is late August or early September because it is after his birthday. He does know that is 2021. He knows that this is the [facility]. He says that he is here for his arthritis. He says that he cannot walk or take care of himself. He says that he has no home other than this hospital room. He says that he does not take any medications. He said that he used to take sole office topic a long time ago for unclear reasons. He does not know what it was for. He does remember that he used to have some heart problems and had some mild heart attacks and almost had a stroke because blood pressure was so high. He says he has no difficulty with cardiac issues at this point. He does not know what his blood pressure had spent recently. He says that he has 10 children and they live up in [place]. He does know that that is about 500 miles away. He says that they do not visit him. He talked about his time in the [employer] when he had shrapnel in his eye and forehead. That was from a training accident when he was in [place]. Meds Home Medications and Allergies Home Medications Medication Instructions Recorded Confirmed Last Taken Type No Known Home Medications 09/10/21 09/10/21 Unknown History Allergies Allergy/AdvReac Type Severity Reaction Status Date / Time Penicillins Allergy Unknown Unknown Verified 09/10/21 14:41 Current Medications Current Medications Generic Name Dose Route Start Last Admin Trade Name Arin PRN Reason Stop Dose Admin Cyanocobalamin 1,000 mcg 09/13/21 18:30 09/15/21 08:00 Cyanocobalamin 1,000 Mcg/Ml Sdv IM 1,000 mcg DAILY TETO Administration Metoprolol Tartrate 25 mg 09/11/21 13:10 09/15/21 08:01 Metoprolol Tartrate 25 Mg Tablet PO 25 mg BID@0900,2100 TETO Administration PFSH NPU PFSH: Medical History (Updated 09/15/21 @ 16:13 by Peewee Foss MD) Arthritis Depression HTN (hypertension) Surgical History No significant past surgical history Family History Other No significant family history Social History Smoking and tobacco status: former smoker Alcohol intake: never Substance/Drug Use: never Lives independently: Yes Household members: none Marital status: / Number of children: 10 Mental Status Exam MSE Comments: This is a 81 year old obese male is approximately a stated age and is in no acute distress. He is pleasant and cooperative with the evaluation. He asked that I contact and normal psychomotor activity for an obese male in a hospital bed. Speech is at a regular rate and rhythm, normal volume, good articulation, not pressured. Alert, oriented X3.He does not know why he is in the hospital Attention and concentrationAppear to be normal Memory is intact Mood is good.? Affect is Euthymic. Thought process is logical and goal-directed. Thought content:? Denies auditory and visual hallucinations.? No delusions or paranoia are noted.? No current suicidal ideation, and no homicidal ideation.? Fund of knowledge is Probably below average. Insight and judgment appear to be Limited. Impulse control appears to be good. Vitals/I&O/Wt Last Vital Signs Temp 98.3 F 09/15/21 15:45 Pulse 68 09/15/21 15:45 Resp 18 09/15/21 15:45 BP 106/70 09/15/21 15:45 Pulse Ox 94 09/15/21 15:45 09/15/21 09/15/21 09/15/21 06:59 14:59 22:59 Intake Total 150 / 630 480 / 480 Output Total 500 / 1050 Balance -350 / -420 480 / 480 Data NPU : 09/11/21 04:53 09/11/21 04:53 A&P Assessment and plan (1) Dementia of the Alzheimer's type: Status: Acute Plan This is a 81-year-old male who is found after falling at home. He does not know why he is in the hospital. He does not know how long is in the hospital. He Does not know his medical issues. He does seem to understand that he is unable to care for himself at home. He is unable to assist in his medical decision-making. Attestations NPU Medical Necessity Statement*: See the attending physician's notes on medical necessity. Coding Level of Care Code Acute Meter Technician for [facility] Diagnoses Dementia of the Alzheimer's type G30.9; F02.80
--- NOTE | 2021-09-15 16:40 | PM.PN ---
Subjective Subjective: He denies any change in his condition. Denies pain or discomfort. He knows he is in the hospital. When asked how he has done with physical therapy yesterday, feels he has done okay with them. And feels the same about day before yesterday. Does not seem to remember that she did not work with them, however, was more willing to speak today. Vitals/I&O/Wt Last Vital Signs Temp 98.3 F 09/15/21 15:45 Pulse 68 09/15/21 15:45 Resp 18 09/15/21 15:45 BP 106/70 09/15/21 15:45 Pulse Ox 94 09/15/21 15:45 09/15/21 09/15/21 09/15/21 06:59 14:59 22:59 Intake Total 150 / 630 480 / 480 Output Total 500 / 1050 Balance -350 / -420 480 / 480 Physical Exam Const: COMMON NORMALS: alert GENERAL APPEARANCE: cooperative NUTRITIONAL APPEARANCE: obese ORIENTATION/CONSCIOUSNESS: Yes awake OTHER: [place] HENMT: COMMON NORMALS: normocephalic, EAC's normal, Normal external nose present and moist oral mucous membranes HEAD & SCALP: normocephalic NOSE: Normal external nose present EXTERNAL AUDITORY CANAL: EAC's normal Neck/C-Spine: COMMON NORMALS: no meningeal signs Chest: CHEST: Yes Symmetrical chest wall rise Resp: COMMON NORMALS: clear to auscultation bilaterally AUSCULTATION: clear to auscultation bilaterally Cardio: COMMON NORMALS: regular rate, regular rhythm and No murmurs present (Cardio) RATE: regular rate RHYTHM: regular rhythm GI: COMMON NORMALS: Normal to inspection, nondistended, normoactive bowel sounds present, Soft to palpation and non-tender PALPATION: Yes Soft to palpation Extremity: COMMON NORMALS: no pedal edema Neuro: COMMON NORMALS: moves all extremities SENSORIUM/ORIENTATION: Yes alert MENINGEAL SIGNS: Yes no meningeal signs Psych: COMMON NORMALS: mental status grossly normal Skin: COMMON NORMALS: no wounds RASHES: no rashes Data : 09/11/21 04:53 09/11/21 04:53 A&P Assessment and plan (1) Acute confusion: There is been no changes in his condition. He remains awake, alert, pleasant, cooperative, but with short-term more than long-term memory deficits. Requested psychiatry evaluation with regards to capacity to make decisions regarding his care. Additional information again pointing to more chronic progressive cognitive decline from caregiver, patient has not been getting out of bed now in a while, at times soiling himself in the bed. Folate normal but B12 low at 195. Receiving B12 replacement. Likely chronic process like dementia. With noted prior consideration of guardianship at [place]. Did not do well on living skills evaluation with OT, showing unable to live at home independently. Recommendation for SNF. CM working with him. He is very pleasant and conversant. He is having difficulties with short-term memory, although tells me historical details from more distant past. Does not appear to have acute infection or metabolic abnormality on work-up so far. Additional studies included UA, unremarkable. TSH normal. He is noted to be in atrial fibrillation incidentally. Concerning part is that he appears to have lack of memory or understanding that he was found down on a wellness check, and this does not appear to concern him or give concern whether it may happen again. Discussed with case management, we will try to see if we can find a way to contact his son, Jamshid Mendoza. He does not want to get in touch with his other children, but does not mind getting in touch with son Jamshid (if we can find him). As he was found on the ground, question is whether he may have hit his head, he has been providing inconsistent history, and does not remember falling today. Yesterday he claimed that he may have hit his head, but not sure. CT of the head without acute abnormality. Status: Acute (2) Atrial fibrillation by electrocardiography: Incidentally noted atrial fibrillation, on 09/11 brief episode of tachycardia over about 10 minutes up to 140s, irregular, atrial fibrillation with RVR. Started on metoprolol, heart rates without further elevation, remains in the 60s and 70s. Given fall, questionable safety awareness, anticoagulation would not be safe at this time, perhaps aspirin could be considered but with similar concerns. Status: Acute (3) Fall: Does not recall falling down or how he ended up in the hospital. Appears to give different story to different people, to me he said he may have slipped on some water getting out of bed. Case management he had said he just got weak and his knees try to get up from the toilet. PT, OT Orthostatics were okay. Unremarkable UA. Does remember hitting his head on the edge of the bed. Plain CT of the head unremarkable. States normally ambulates with a [place] cane. Status: Acute (4) HTN (hypertension): Started on metoprolol. Blood pressures are better. Monitor. Cardiac diet, monitor blood pressure. Metoprolol as above. Status: Acute (5) Shoulder pain: Shoulder pain with elevation of the right arm, active or passive. 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 Status: Acute Attestations Medical Necessity Statement*: Continue hospitalization for reassessment of progressive functional decline, inability to live independently while living alone, B12 replacement, decisional capacity assessment and post discharge planning. Coding Level of Care Code Acute Regulatory Administrator for [facility] Estephania Diagnoses Acute confusion R41.0 Atrial fibrillation by electrocardiography I48.91 Fall W19.XXXA HTN (hypertension) I10 Shoulder pain M25.519
[2021-09-16] VITALS (8 sets, daily range): BP systolic 103–133; BP diastolic 68–83; PULSE 70–83; RESP 16–24; TEMP 36.4–37; O2SAT 93–96
[2021-09-16] MEDS: cyanocobalamin 1,000 mcg/mL SDV 1000 MCG IM (08:07)
[2021-09-16] MEDS: metoprolol tartrate 25 mg Tablet PO ×2 (08:07→20:37)
--- NOTE | 2021-09-16 11:01 | USCV_ITS ---
Britton Mendoza Age: 81 Gender: M : 1940 Exam Date: 09/16/2021 13:52 Ordering Phys: Dionicio Marquez MD Technologist: ALEXIS Exam Location: [facility] [place] Indication: ALTERED MENTAL STATUS Risk Factors: Previous Vascular Surgery: Right Brachial BP: / Left Brachial BP: / Right Left Velocity (cm/s) Spectral Plaque Velocity (cm/s) Spectral Plaque Syst/Diast Broadening Syst/Diast Broadening 71.80/ 21.40 Prox CCA 62.80 / 11.00 77.80/ 14.50 Mid CCA 62.80 / 13.20 54.70/ 12.00 Distal CCA 54.70 / 13.70 98.30/ 32.50 Prox ICA 30.30 / 10.10 88.90/ 46.10 Mid ICA 65.30 / 19.40 76.00/ 21.40 Distal ICA 69.10 / 28.70 47.30 ECA 152.90 1.26 ICA/CCA 1.10 Antegrade Vertebral Antegrade 50.40/ 16.20 cm/s 53.60/ 21.80 cm/s Tri Subclavian Tri 110.4 79.20 0 FINDINGS Comparison: none available. Diffuse bilateral scattered calcified plaque and intimal thickening throughout the common carotid arteries and extending through the bifurcation. Mild elevation of systolic velocity but no high grade stenosis. Plaque surface is irregular. Antegrade vertebral arteries. CONCLUSIONS Bilateral ICA stenosis less than 50%. Diffuse atherosclerotic plaque with irregular surfaces. Dr. Serene Sadler DO (Electronically Signed) Final Date: 16 September 2021 15:51 S
--- NOTE | 2021-09-16 11:01 | USCV_ITS ---
Britton Mendoza Age: 81 Gender: M : 1940 Exam Date: 09/16/2021 14:08 Ordering Phys: Dionicio Marquez MD Technologist: ALEXIS [place] [facility] [place]: ALTERED MENTAL STATUS BP: 119 / 74 HR: 76 Rhythm: Atrial fibrillation Technical Quality: Suboptimal MEASUREMENTS (Male / Female) Normal Values 2D ECHO LV Ejection Fraction MOD 2C 64.2 % LV Ejection Fraction 2C AL 66.2 % LA Width 4.5 cm LA Height 5.4 cm RA Width 4.3 cm RA Height 5.0 cm IVC Diameter 2.0 cm DOPPLER AV Peak Velocity 232.0 cm/s LVOT Peak Velocity 89.0 cm/s MV Peak Velocity 113.0 cm/s MV Area PHT 3.2 cm squared MV E' Velocity 61.5 cm/s Mitral E to MV E' Ratio 10.2 Mitral E to LV E' Lateral Ratio 10.4 Mitral E to LV E' Septal Ratio 10.1 TR Peak Velocity 247.6 cm/s TR Peak Gradient 24.5 mmHg TR Mean Velocity 201.4 cm/s TR Mean Gradient 16.9 mmHg TR Velocity Time Integral 58.7 cm TV Peak E Velocity 32.0 cm/s Right Atrial Pressure 3.0 mmHg Pulmonary Artery Systolic Pressu 27.5 mmHg FINDINGS Left Ventricle Normal left ventricular cavity size and systolic function. Left ventricular ejection fraction is estimated at 70 %. No regional wall motion abnormalities. Rhythm precludes evaluation of diastolic function. Right Ventricle Normal right ventricular size and systolic function. Right Atrium Normal right atrial size. Left Atrium Normal left atrial size. Mitral Valve Mild mitral annular calcification. Thickened mitral valve. Aortic Valve Aortic valve not well visualized. Probably mildly stenotic aortic valve with peak velocity of 2.3 m/s and mean gradient 14 mmHg. Complete assessment of aortic valve is not possible on this study. Tricuspid Valve Tricuspid valve not well visualized. Pulmonic Valve Pulmonic valve not well visualized. Pericardium No pericardial effusion. Aorta Aorta not well visualized. IVC Inferior vena cava not visualized. CONCLUSIONS 1. This is a technically difficult study with no parasternal windows. Optison was used per protocol. 2. Normal left ventricular cavity size and systolic function. Left ventricular ejection fraction is estimated at 70 %. No regional wall motion abnormalities. 3. Probably mildly stenotic aortic valve with peak velocity of 2.3 m/s and mean gradient 14 mmHg. 4. No prior similar studies to compare. Iris Hoover MD (Electronically Signed) Final Date: 16 September 2021 17:43 S
--- NOTE | 2021-09-16 11:24 | PC.NURSE ---
Dr. Russ notified that patient is unsure of his medical history. He is not clear about all the things he had had done in the past.
--- NOTE | 2021-09-16 11:58 | P.PN_ITS ---
Subjective Subjective: Patient was seen this morning he sitting up in a chair, giving himself a bed bath he is alert to person, not to place, not to time, he tells me he is at home currently, he tells me that he is one-to-one sitter is his only friend that he knows of, he has no friends, he is not sure where he lives, he tells me he thinks he lives where he is currently at which is the hospital, he does not know the date, does not know the time, does not know what he had for breakfast this morning, he does not know why he is here, he has no complaints acutely, does complain of chronic back pain, chronic bilateral knee pain, he tells me he normally can only take a few steps due to severe knee pain, he tells me that he was , but his , he does have 1 son, who lives in [place], but he has not talked to his son in a long time, him and his son do not get along, he tells me that he was in the [employer], stationed in [place], 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, he is not sure what he does on a day-to-day basis, he does not know about any friends except the people he has met here in the hospital, he tells me he lives by himself he is not sure exactly where, Vitals/I&O/Wt Last Vital Signs Temp 97.6 F 09/16/21 11:32 Pulse 75 09/16/21 11:32 Resp 18 09/16/21 11:32 BP 119/74 09/16/21 11:32 Pulse Ox 93 09/16/21 11:32 09/15/21 09/16/21 09/16/21 22:59 06:59 14:59 Intake Total 360 / 840 360 / 360 Balance 360 / 840 360 / 360 Physical Exam Const: COMMON NORMALS: no acute distress OTHER: Alert to person, not to place, not to time, can follow commands Resp: COMMON NORMALS: normal respiratory effort, No retractions, No use of accessory muscles and clear to auscultation bilaterally AUSCULTATION: clear to auscultation bilaterally Cardio: COMMON NORMALS: regular rate, regular rhythm, S1 normal heart sound present and S2 normal heart sound present RATE: regular rate RHYTHM: regular rhythm HEART SOUNDS: S1 normal heart sound present and S2 normal heart sound present GI: COMMON NORMALS: Normal to inspection, nondistended, normoactive bowel sounds present, Soft to palpation and non-tender PALPATION: Yes Soft to palpation Extremity: COMMON NORMALS: no pedal edema Data : 09/11/21 04:53 09/11/21 04:53 A&P Assessment and plan (1) Acute confusion: -Possibly this could be underlying Alzheimer's dementia -Is alert to person, not to place, not to time, does have significant short-term memory loss, does have long-term memory -Unfortunately no reachable family, no contacts, nobody has called about his whereabouts, we are unable to reach any friends or family -Certainly this is a difficult situation -Does have B12 deficiency, 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 Alcohol status is unknown -I will do a further work-up including carotid artery ultrasound, MRI of the brain, cardiac echo -Did have short episodes of atrial fibrillation, possible embolic phenomenon, will do MRI of the brain -We will need to pursue guardianship at this point There is been no changes in his condition. He remains awake, alert, pleasant, cooperative, but with short-term more than long-term memory deficits. Requested psychiatry evaluation with regards to capacity to make decisions regarding his care. Additional information again pointing to more chronic progressive cognitive decline from caregiver, patient has not been getting out of bed now in a while, at times soiling himself in the bed. Folate normal but B12 low at 195. Receiving B12 replacement. Likely chronic process like dementia. With noted prior consideration of guardianship at [place]. Did not do well on living skills evaluation with OT, showing unable to live at home independently. Recommendation for SNF. CM working with him. He is very pleasant and conversant. He is having difficulties with short-term memory, although tells me historical details from more distant past. Does not appear to have acute infection or metabolic abnormality on work-up so far. Additional studies included UA, unremarkable. TSH normal. He is noted to be in atrial fibrillation incidentally. Concerning part is that he appears to have lack of memory or understanding that he was found down on a wellness check, and this does not appear to concern him or give concern whether it may happen again. Discussed with case management, we will try to see if we can find a way to conta ct his son, Jamshid Mendoza. He does not want to get in touch with his other children, but does not mind getting in touch with son Jamshid (if we can find him). As he was found on the ground, question is whether he may have hit his head, he has been providing inconsistent history, and does not remember falling today. Yesterday he claimed that he may have hit his head, but not sure. CT of the head without acute abnormality. Status: Acute (2) Atrial fibrillation by electrocardiography: Incidentally noted atrial fibrillation, on 09/11 brief episode of tachycardia over about 10 minutes up to 140s, irregular, atrial fibrillation with RVR. Started on metoprolol, heart rates without further elevation, remains in the 60s and 70s. Given fall, questionable safety awareness, anticoagulation would not be safe at this time, perhaps aspirin could be considered but with similar concerns. Status: Acute (3) Fall: Does not recall falling down or how he ended up in the hospital. Appears to give different story to different people, to me he said he may have slipped on some water getting out of bed. Case management he had said he just got weak and his knees try to get up from the toilet. PT, OT Orthostatics were okay. Unremarkable UA. Does remember hitting his head on the edge of the bed. Plain CT of the head unremarkable. States normally ambulates with a [place] cane. Status: Acute (4) HTN (hypertension): Started on metoprolol. Blood pressures are better. Monitor. Cardiac diet, monitor blood pressure. Metoprolol as above. Status: Acute (5) Shoulder pain: Shoulder pain with elevation of the right arm, active or passive. 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 Status: Acute Attestations Medical Necessity Statement*: Patient requires hospitalization for encephalopathy Coding Level of Care Code Acute Ash Handler for [facility] Diagnoses Acute confusion R41.0 Atrial fibrillation by electrocardiography I48.91 Fall W19.XXXA HTN (hypertension) I10 Shoulder pain M25.519
--- NOTE | 2021-09-16 12:06 | CT_ITS ---
WS: [id number] CT HEAD NONCONTRAST HISTORY: ams TECHNIQUE: Contiguous axial imaging performed through the brain in 2.5 mm imaging. Bone and soft tiss ue windows. Sagittal and coronal reformats reviewed. All CT scans at [facility] use at least one of these dose optimization techniques: automated exposure control; mA and/or kV adjustment per pa tient size (includes targeted exams where dose is matched to clinical indication); or iterative recon struction. DLP: 1223.36 mGy.cm COMPARISON: None available. No acute intracranial hemorrhage, midline shift or mass effect. Atrophy and small vessel ischemic changes are stable. No midline shift. No mass effect. Lacunar infar ct in the external capsule on the RIGHT. Small tiny lacunar infarcts LEFT caudate. Ventricles: Normal size with no hydrocephalus. No inferior displacement of the cerebellar tonsils. Paranasal sinuses: As visualized are clear. Mastoid air cells: Well pneumatized. Calvarium and scalp: Skull is intact with no soft tissue edema or swelling. CT/CT head wo con* [id number] IMPRESSION: 1. No acute intracranial hemorrhage or edema. 2. Atrophy and small vessel ischemic changes and lacunar infarcts are stable.
[2021-09-16] MEDS: perflutren protein-a microsphr 0.22 mg/mL SDV 3 mL IV (15:16)
[2021-09-17] VITALS (7 sets, daily range): BP systolic 112–153; BP diastolic 74–92; PULSE 64–87; RESP 16–25; TEMP 36.5–37.2; O2SAT 92–96
[2021-09-17] MEDS: metoprolol tartrate 25 mg Tablet PO (08:05)
--- NOTE | 2021-09-17 08:22 | PC.SOCIAL ---
IMM Not given Started guardianship process on pt. IMM not given. Pt is not expected to d/c within the next 24-48hrs.
[2021-09-17] MEDS: cyanocobalamin 1,000 mcg Tablet 1000 MCG PO (09:28)
--- NOTE | 2021-09-17 12:37 | P.PN_ITS ---
Subjective Subjective: Patient was seen this morning, sitting up to the side of the bed, he complains of severe bilateral knee osteoarthritis, pain with ambulation, remains alert to person, not to place, not to time, follows commands Vitals/I&O/Wt Last Vital Signs Temp 98.0 F 09/17/21 11:45 Pulse 69 09/17/21 11:45 Resp 16 09/17/21 11:45 BP 126/75 09/17/21 11:45 Pulse Ox 95 09/17/21 11:45 09/16/21 09/17/21 09/17/21 22:59 06:59 14:59 Intake Total 357 / 957 240 / 240 Output Total 425 / 425 Balance -425 / 175 357 / 532 240 / 240 Physical Exam Const: COMMON NORMALS: no acute distress Resp: COMMON NORMALS: normal respiratory effort, No retractions, No use of accessory muscles and clear to auscultation bilaterally AUSCULTATION: clear to auscultation bilaterally Cardio: COMMON NORMALS: regular rate, regular rhythm, S1 normal heart sound present and S2 normal heart sound present RATE: regular rate RHYTHM: regular rhythm HEART SOUNDS: S1 normal heart sound present and S2 normal heart sound present GI: COMMON NORMALS: Normal to inspection, nondistended, normoactive bowel sounds present, Soft to palpation and non-tender PALPATION: Yes Soft to palpation Extremity: COMMON NORMALS: no pedal edema Data : 09/11/21 04:53 09/11/21 04:53 A&P Assessment and plan (1) Acute confusion: -Possibly this could be underlying Alzheimer's dementia -Is alert to person, not to place, not to time, does have significant short-term memory loss, does have long-term memory -Unfortunately no reachable family, no contacts, nobody has called about his whereabouts, we are unable to reach any friends or family -Certainly this is a difficult situation -Does have B12 deficiency, 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 Alcohol status is unknown -Cardiac echo 1.? This is a technically difficult study with no parasternal ?windows.? Optison was used per protocol. ?2.? Normal left ventricular cavity size and systolic function. ?Left ventricular ejection fraction is estimated at 70 %. No ?regional wall motion abnormalities. ?3. Probably mildly stenotic aortic valve with peak velocity of ?2.3 m/s and mean gradient 14 mmHg. ?4. No prior similar studies to compare. -Carotid artery ultrasound Diffuse bilateral scattered calcified plaque and intimal ?thickening throughout the common carotid arteries and extending ?through the bifurcation. Mild elevation of systolic velocity but ?no high grade stenosis. Plaque surface is irregular. ?Antegrade vertebral arteries. -Repeat CT of the head -1.? No acute intracranial hemorrhage or edema. 2.? Atrophy and small vessel ischemic changes and lacunar infarcts are stable. -Pursuing guardianship There is been no changes in his condition. He remains awake, alert, pleasant, cooperative, but with short-term more than long-term memory deficits. Requested psychiatry evaluation with regards to capacity to make decisions regarding his care. Additional information again pointing to more chronic progressive cognitive decline from caregiver, patient has not been getting out of bed now in a while, at times soiling himself in the bed. Folate normal but B12 low at 195. Receiving B12 replacement. Likely chronic process like dementia. With noted prior consideration of guardianship at [place]. Did not do well on living skills evaluation with OT, showing unable to live at home independently. Recommendation for SNF. CM working with him. He is very pleasant and conversant. He is having difficulties with short-term memory, although tells me historical details from more distant past. Does not appear to have acute infection or metabolic abnormality on work-up so far. Additional studies included UA, unremarkable. TSH normal. He is noted to be in atrial fibrillation incidentally. Concerning part is that he appears to have lack of memory or understanding that he was found down on a wellness check, and this does not appear to concern him or give concern whether it may happen again. Discussed with case management, we will try to see if we can find a way to contact his son, Jamshid Mendoza. He does not want to get in touch with his other children, but does not mind getting in touch with son Jamshid (if we can find him). As he was found on the ground, question is whether he may have hit his head, he has been providing inconsistent history, and does not remember falling today. Yesterday he claimed that he may have hit his head, but not sure. CT of the head without acute abnormality. Status: Acute (2) Atrial fibrillation by electrocardiography: Incidentally noted atrial fibrillation, on 09/11 brief episode of tachycardia over about 10 minutes up to 140s, irregular, atrial fibrillation with RVR. Started on metoprolol, heart rates without further elevation, remains in the 60s and 70s. Given fall, questionable safety awareness, anticoagulation would not be safe at this time, perhaps aspirin could be considered but with similar concerns. Status: Acute (3) Fall: Does not recall falling down or how he ended up in the hospital. Appears to give different story to different people, to me he said he may have slipped on some water getting out of bed. Case management he had said he just got weak and his knees try to get up from the toilet. PT, OT Orthostatics were okay. Unremarkable UA. Does remember hitting his head on the edge of the bed. Plain CT of the head unremarkable. States normally ambulates with a [place] cane. Status: Acute (4) HTN (hypertension): Started on metoprolol. Blood pressures are better. Monitor. Cardiac diet, monitor blood pressure. Metoprolol as above. Status: Acute (5) Shoulder pain: Shoulder pain with elevation of the right arm, active or passive. 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 Status: Acute Attestations Medical Necessity Statement*: Patient requires hospitalization for altered mental status, likely underlying dementia, pursuing guardianship Coding Level of Care Code Acute Planning Official for [facility] Diagnoses Acute confusion R41.0 Atrial fibrillation by electrocardiography I48.91 Fall W19.XXXA HTN (hypertension) I10 Shoulder pain M25.519
[2021-09-17] MEDS: HYDROcodone-acetaminophen 5-325 mg Tablet 1 TAB PO (17:28)
--- NOTE | 2021-09-17 19:02 | PC.NURSE ---
Report to Lisseth ALSTON at this time.
[2021-09-18] VITALS (7 sets, daily range): BP systolic 109–138; BP diastolic 74–87; PULSE 65–86; RESP 16–18; TEMP 36.6–37.6; O2SAT 92–98
--- NOTE | 2021-09-18 08:00 | MR_ITS ---
WS: [id number] MRI HEAD WITHOUT CONTRAST TECHNIQUE: Sagittal T1, T2 axial, T2 axial FLAIR, axial and coronal T1 images, axial susceptibility w eighted imaging, axial diffusion weighted images, and coronal T2 images were obtained. CLINICAL INFORMATION: ams COMPARISON: CT September 16, 2021 FINDINGS: No evidence of restricted diffusion to suggest acute ischemia. Ventricles system and basal cisterns a re patent. Moderate small vessel changes with advanced parenchymal volume loss. Normal vascular flow voids at the skull base. No extra-axial fluid collections. Paranasal sinuses and mastoid air cells are well aerated. Advanced symmetric atrophy temporal lobes a nd hippocampal formations. Normal optic chiasm and pituitary infundibulum. Chronic lacunar infarcts i n the periventricular white matter and atwood radiata, RIGHT greater than LEFT. No hemosiderin on bishop ceptibly weighted images. MR/MR head wo con* [id number] IMPRESSION: 1. No evidence of restricted diffusion to suggest acute ischemia. 2. Moderate small vessel changes with advanced parenchymal volume loss worse i n the frontal and temporal lobes. 3. Chronic lacunar infarcts in the periventricular white matter and RIGHT grea ter than LEFT atwood radiata. 4. Paranasal sinuses and mastoid air cells well aerated. 5. No other significant findings.
[2021-09-18] MEDS: metoprolol tartrate 25 mg Tablet PO ×2 (10:09→21:46)
[2021-09-18] MEDS: cyanocobalamin 1,000 mcg Tablet 1000 MCG PO (10:09)
--- NOTE | 2021-09-18 15:06 | PM.PN ---
Subjective Subjective: Patient was seen this morning, after his MRI, his live-in caregiver is at bedside, patient has no complaints this morning, he had his MRI, he has limited caregiver tells me that he does not have any family that she knows of, he does have a son, however they have been estranged for the last few years, other physicians have tried to reach out to him, but to no avail Vitals/I&O/Wt Last Vital Signs Temp 97.8 F 09/18/21 12:00 Pulse 73 09/18/21 12:00 Resp 18 09/18/21 12:00 BP 109/74 09/18/21 12:00 Pulse Ox 94 09/18/21 12:00 09/18/21 09/18/21 09/18/21 06:59 14:59 22:59 Intake Total 350 / 1220 480 / 480 Output Total 325 / 325 Balance 25 / 895 480 / 480 Physical Exam Const: COMMON NORMALS: no acute distress and patient oriented x3 Resp: COMMON NORMALS: normal respiratory effort, No retractions, No use of accessory muscles and clear to auscultation bilaterally AUSCULTATION: clear to auscultation bilaterally Cardio: COMMON NORMALS: regular rate, regular rhythm, S1 normal heart sound present and S2 normal heart sound present RATE: regular rate RHYTHM: regular rhythm HEART SOUNDS: S1 normal heart sound present and S2 normal heart sound present GI: COMMON NORMALS: Normal to inspection, nondistended, normoactive bowel sounds present, Soft to palpation and non-tender PALPATION: Yes Soft to palpation Extremity: COMMON NORMALS: no pedal edema Neuro: COMMON NORMALS: patient oriented x3 Psych: COMMON NORMALS: mental status grossly normal Data : 09/11/21 04:53 09/11/21 04:53 A&P Assessment and plan (1) Acute confusion: -Likely secondary to underlying Alzheimer's dementia -Is alert to person, not to place, not to time, does have significant short-term memory loss, does have long-term memory -Follows commands -Unfortunately no reachable family, no contacts, nobody has called about his whereabouts, we are unable to reach any friends or family -Certainly this is a difficult situation -Does have B12 deficiency, 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 Alcohol status is unknown -Cardiac echo 1.? This is a technically difficult study with no parasternal ?windows.? Optison was used per protocol. ?2.? Normal left ventricular cavity size and systolic function. ?Left ventricular ejection fraction is estimated at 70 %. No ?regional wall motion abnormalities. ?3. Probably mildly stenotic aortic valve with peak velocity of ?2.3 m/s and mean gradient 14 mmHg. ?4. No prior similar studies to compare. -Carotid artery ultrasound Diffuse bilateral scattered calcified plaque and intimal ?thickening throughout the common carotid arteries and extending ?through the bifurcation. Mild elevation of systolic velocity but ?no high grade stenosis. Plaque surface is irregular. ?Antegrade vertebral arteries. -Repeat CT of the head -1.? No acute intracranial hemorrhage or edema. 2.? Atrophy and small vessel ischemic changes and lacunar infarcts are stable. Had MRI -1.? No evidence of restricted diffusion to suggest acute ischemia. 2.? Moderate small vessel changes with advanced parenchymal volume loss worse in the frontal and temporal lobes. 3.? Chronic lacunar infarcts in the periventricular white matter and RIGHT greater than LEFT atwood radiata. 4.? Paranasal sinuses and mastoid air cells well aerated. 5.? No other significant findings. -Pursuing guardianship Bilateral knee osteoarthritis, PT OT, hydrocodone There is been no changes in his condition. He remains awake, alert, pleasant, cooperative, but with short-term more than long-term memory deficits. Requested psychiatry evaluation with regards to capacity to make decisions regarding his care. Additional information again pointing to more chronic progressive cognitive decline from caregiver, patient has not been getting out of bed now in a while, at times soiling himself in the bed. Folate normal but B12 low at 195. Receiving B12 replacement. Likely chronic process like dementia. With noted prior consideration of guardianship at [place]. Did not do well on living skills evaluation with OT, showing unable to live at home independently. Recommendation for SNF. CM working with him. He is very pleasant and conversant. He is having difficulties with short-term memory, although tells me historical details from more distant past. Does not appear to have acute infection or metabolic abnormality on work-up so far. Additional studies included UA, unremarkable. TSH normal. He is noted to be in atrial fibrillation incidentally. Concerning part is that he appears to have lack of memory or understanding that he was found down on a wellness check, and this does not appear to concern him or give concern whether it may happen again. Discussed with case management, we will try to see if we can find a way to contact his son, Jamshid Mendoza. He does not want to get in touch with his other children, but does not mind getting in touch with son Jamshid (if we can find him). As he was found on the ground, question is whether he may have hit his head, he has been providing inconsistent history, and does not remember falling today. Yesterday he claimed that he may have hit his head, but not sure. CT of the head without acute abnormality. Status: Acute (2) Atrial fibrillation by electrocardiography: Incidentally noted atrial fibrillation, on 09/11 brief episode of tachycardia over about 10 minutes up to 140s, irregular, atrial fibrillation with RVR. Started on metoprolol, heart rates without further elevation, remains in the 60s and 70s. Given fall, questionable safety awareness, anticoagulation would not be safe at this time, perhaps aspirin could be considered but with similar concerns. Status: Acute (3) Fall: Does not recall falling down or how he ended up in the hospital. Appears to give different story to different people, to me he said he may have slipped on some water getting out of bed. Case management he had said he just got weak and his knees try to get up from the toilet. PT, OT Orthostatics were okay. Unremarkable UA. Does remember hitting his head on the edge of the bed. Plain CT of the head unremarkable. States normally ambulates with a [place] cane. Status: Acute (4) HTN (hypertension): Started on metoprolol. Blood pressures are better. Monitor. Cardiac diet, monitor blood pressure. Metoprolol as above. Status: Acute (5) Shoulder pain: Shoulder pain with elevation of the right arm, active or passive. 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 Status: Acute Attestations Medical Necessity Statement*: Patient requires hospitalization, underlying Alzheimer's dementia, pursuing guardianship Coding Level of Care Code Acute Examiner Of Currency for [facility] Diagnoses Acute confusion R41.0 Atrial fibrillation by electrocardiography I48.91 Fall W19.XXXA HTN (hypertension) I10 Shoulder pain M25.519
[2021-09-18] MEDS: HYDROcodone-acetaminophen 5-325 mg Tablet 1 TAB PO (21:46)
[2021-09-19 03:54] VITALS: BP 118/71; PULSE 65; RESP 18; TEMP 36.5; O2SAT 96
[2021-09-19 07:30] VITALS: BP 117/73; PULSE 68; RESP 13; TEMP 36.6; O2SAT 95
[2021-09-19] MEDS: metoprolol tartrate 25 mg Tablet PO ×2 (08:35→20:37)
[2021-09-19] MEDS: cyanocobalamin 1,000 mcg Tablet 1000 MCG PO (08:36)
--- NOTE | 2021-09-19 12:47 | P.PN_ITS ---
Subjective Subjective: Patient was seen this morning, he has no complaints, no pain complaints Vitals/I&O/Wt Last Vital Signs Temp 98 F 09/19/21 07:30 Pulse 68 09/19/21 07:30 Resp 13 09/19/21 07:30 BP 117/73 09/19/21 07:30 Pulse Ox 95 09/19/21 07:30 09/18/21 09/19/21 09/19/21 22:59 06:59 14:59 Intake Total 480 / 960 200 / 200 Output Total 200 / 200 1 / 201 Balance 280 / 760 -1 / 759 200 / 200 Physical Exam Const: COMMON NORMALS: no acute distress Resp: COMMON NORMALS: normal respiratory effort, No retractions, No use of accessory muscles and clear to auscultation bilaterally AUSCULTATION: clear to auscultation bilaterally Cardio: COMMON NORMALS: regular rate, regular rhythm, S1 normal heart sound present and S2 normal heart sound present RATE: regular rate RHYTHM: r egular rhythm HEART SOUNDS: S1 normal heart sound present and S2 normal heart sound present GI: COMMON NORMALS: Normal to inspection, nondistended, normoactive bowel sounds present, Soft to palpation and non-tender PALPATION: Yes Soft to palpation Extremity: COMMON NORMALS: no pedal edema Data : 09/11/21 04:53 09/11/21 04:53 A&P Assessment and plan (1) Acute confusion: -Likely secondary to underlying Alzheimer's dementia -Is alert to person, not to place, not to time, does have significant short-term memory loss, does have long-term memory -Follows commands -Unfortunately no reachable family, no contacts, nobody has called about his whereabouts, we are unable to reach any friends or family -Certainly this is a difficult situation -Does have B12 deficiency, 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 Alcohol status is unknown -Cardiac echo 1.? This is a technically difficult study with no parasternal ?windows.? Optison was used per protocol. ?2.? Normal left ventricular cavity size and systolic function. ?Left ventricular ejection fraction is estimated at 70 %. No ?regional wall motion abnormalities. ?3. Probably mildly stenotic aortic valve with peak velocity of ?2.3 m/s and mean gradient 14 mmHg. ?4. No prior similar studies to compare. -Carotid artery ultrasound Diffuse bilateral scattered calcified plaque and intimal ?thickening throughout the common carotid arteries and extending ?through the bifurcation. Mild elevation of systolic velocity but ?no high grade stenosis. Plaque surface is irregular. ?Antegrade vertebral arteries. -Repeat CT of the head -1.? No acute intracranial hemorrhage or edema. 2.? Atrophy and small vessel ischemic changes and lacunar infarcts are stable. Had MRI -1.? No evidence of restricted diffusion to suggest acute ischemia. 2.? Moderate small vessel changes with advanced parenchymal volume loss worse in the frontal and temporal lobes. 3.? Chronic lacunar infarcts in the periventricular white matter and RIGHT greater than LEFT atwood radiata. 4.? Paranasal sinuses and mastoid air cells well aerated. 5.? No other significant findings. -Pursuing guardianship Bilateral knee osteoarthritis, PT OT, hydrocodone There is been no changes in his condition. He remains awake, alert, pleasant, cooperative, but with short-term more than long-term memory deficits. Requested psychiatry evaluation with regards to capacity to make decisions rega rding his care. Additional information again pointing to more chronic progressive cognitive decline from caregiver, patient has not been getting out of bed now in a while, at times soiling himself in the bed. Folate normal but B12 low at 195. Receiving B12 replacement. Likely chronic process like dementia. With noted prior consideration of guardianship at [place]. Did not do well on living skills evaluation with OT, showing unable to live at home independently. Recommendation for SNF. CM working with him. He is very pleasant and conversant. He is having difficulties with short-term memory, although tells me historical details from more distant past. Does not appear to have acute infection or metabolic abnormality on work-up so far. Additional studies included UA, unremarkable. TSH normal. He is noted to be in atrial fibrillation incidentally. Concerning part is that he appears to have lack of memory or understanding that he was found down on a wellness check, and this does not appear to concern him or give concern whether it may happen again. Discussed with case management, we will try to see if we can find a way to contact his son, Jamshid Mendoza. He does not want to get in touch with his other children, but does not mind getting in touch with son Jamshid (if we can find him ). As he was found on the ground, question is whether he may have hit his head, he has been providing inconsistent history, and does not remember falling today. Yesterday he claimed that he may have hit his head, but not sure. CT of the head without acute abnormality. Status: Acute (2) Atrial fibrillation by electrocardiography: Incidentally noted atrial fibrillation, on 09/11 brief episode of tachycardia over about 10 minutes up to 140s, irregular, atrial fibrillation with RVR. Started on metoprolol, heart rates without further elevation, remains in the 60s and 70s. Given fall, questionable safety awareness, anticoagulation would not be safe at this time, perhaps aspirin could be considered but with similar concerns. Status: Acute (3) Fall: Does not recall falling down or how he ended up in the hospital. Appears to give different story to different people, to me he said he may have slipped on some water getting out of bed. Case management he had said he just got weak and his knees try to get up from the toilet. PT, OT Orthostatics were okay. Unremarkable UA. Does remember hitting his head on the edge of the bed. Plain CT of the head unremarkable. States normally ambulates with a [place] cane. Status: Acute (4) HTN (hypertension): Started on metoprolol. Blood pressures are better. Monitor. Cardiac diet, monitor blood pressure. Metoprolol as above. Status: Acute (5) Shoulder pain: Shoulder pain with elevation of the right arm, active or passive. 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 Status: Acute Attestations Medical Necessity Statement*: patient requires hospitalization for pursuing gaudianship Coding Level of Care Code Acute Chain Sales Representative for [facility]ia Diagnoses Acute confusion R41.0 Atrial fibrillation by electrocardiography I48.91 Fall W19.XXXA HTN (hypertension) I10 Shoulder pain M25.519
[2021-09-19] MEDS: HYDROcodone-acetaminophen 5-325 mg Tablet 1 TAB PO (16:44)
[2021-09-19 20:00] VITALS: BP 150/88; PULSE 73; RESP 24; TEMP 36.4; O2SAT 95
[2021-09-20] VITALS (7 sets, daily range): BP systolic 113–151; BP diastolic 72–96; PULSE 66–84; RESP 15–20; TEMP 36.6–37; O2SAT 95–97
--- NOTE | 2021-09-20 07:33 | PC.NURSE ---
5 am care plan done accidently. operations supervisor 2nd shift JELLY FILTER TENDER did not do. Meant to fozia not done.
[2021-09-20] MEDS: metoprolol tartrate 25 mg Tablet PO ×2 (09:55→21:21)
[2021-09-20] MEDS: cyanocobalamin 1,000 mcg Tablet 1000 MCG PO (09:55)
--- NOTE | 2021-09-20 14:00 | P.PN_ITS ---
Subjective Subjective: Patient was seen this morning, he is reading a novel, he tells me he loves westerns, alert to person, not to place, not to time Vitals/I&O/Wt Last Vital Signs Temp 98 F 09/20/21 11:39 Pulse 76 09/20/21 11:39 Resp 15 09/20/21 11:39 BP 113/79 09/20/21 11:39 Pulse Ox 95 09/20/21 11:39 09/19/21 09/20/21 09/20/21 22:59 06:59 14:59 Intake Total 120 / 520 360 / 360 Output Total 675 / 675 Balance 120 / 520 -675 / -155 360 / 360 Physical Exam Const: COMMON NORMALS: no acute distress Resp: COMMON NORMALS: normal respiratory effort, No retractions, No use of accessory muscles and clear to auscultation bilaterally AUSCULTATION: clear to auscultation bilaterally Cardio: COMMON NORMALS: regular rate, regular rhythm, S1 normal heart sound present and S2 normal heart sound present RATE: regular rate RHYTHM: regular rhythm HEART SOUNDS: S1 normal heart sound present and S2 normal heart sound present GI: COMMON NORMALS: Normal to inspection, nondistended, normoactive bowel s ounds present, Soft to palpation and non-tender PALPATION: Yes Soft to pa lpation Extremity: COMMON NORMALS: no pedal edema Psych: COMMON NORMALS: mental status grossly normal Data : 09/11/21 04:53 09/11/21 04:53 A&P Assessment and plan (1) Acute confusion: -Likely secondary to underlying Alzheimer's dementia -Is alert to person, not to place, not to time, does have significant short-term memory loss, does have long-term memory -Follows commands -Unfortunately no reachable family, no contacts, nobody has called about his whereabouts, we are unable to reach any friends or family -Certainly this is a difficult situation -Does have B12 deficiency, 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 Alcohol status is unknown -Cardiac echo 1.? This is a technically difficult study with no parasternal ?windows.? Optison was used per protocol. ?2.? Normal left ventricular cavity size and systolic function. ?Left ventricular ejection fraction is estimated at 70 %. No ?regional wall motion abnormalities. ?3. Probably mildly stenotic aortic valve with peak velocity of ?2.3 m/s and mean gradient 14 mmHg. ?4. No prior similar studies to compare. -Carotid artery ultrasound Diffuse bilateral scattered calcified plaque and intimal ?thickening throughout the common carotid arteries and extending ?through the bifurcation. Mild elevation of systolic velocity but ?no high grade stenosis. Plaque surface is irregular. ?Antegrade vertebral arteries. -Repeat CT of the head -1.? No acute intracranial hemorrhage or edema. 2.? Atrophy and small vessel ischemic changes and lacunar infarcts are stable. Had MRI -1.? No evidence of restricted diffusion to suggest acute ischemia. 2.? Moderate small vessel changes with advanced parenchymal volume loss worse in the frontal and temporal lobes. 3.? Chronic lacunar infarcts in the periventricular white matter and RIGHT greater than LEFT atwood radiata. 4.? Paranasal sinuses and mastoid air cells well aerated. 5.? No other significant findings. -Pursuing guardianship Bilateral knee osteoarthritis, PT OT, hydrocodone There is been no changes in his condition. He remains awake, alert, pleasant, cooperative, but with short-term more than long-term memory deficits. Requested psychiatry evaluation with regards to capacity to make decisions regarding his care. Additional information again pointing to more chronic progressive cognitive decline from caregiver, patient has not been getting out of bed now in a while, at times soiling himself in the bed. Folate normal but B12 low at 195. Receiving B12 replacement. Likely chronic process like dementia. With noted prior consideration of guardianship at [place]. Did not do well on living skills evaluation with OT, showing unable to live at home independently. Recommendation for SNF. CM working with him. He is very pleasant and conversant. He is having difficulties with short-term memory, although tells me historical details from more distant past. Does not appear to have acute infection or metabolic abnormality on work-up so far. Additional studies included UA, unremarkable. TSH normal. He is noted to be in atrial fibrillation incidentally. Concerning part is that he appears to have lack of memory or understanding that he was found down on a wellness check, and this does not appear to concern him or give concern whether it may happen again. Discussed with case management, we will try to see if we can find a way to c ontact his son, Jamshid Mendoza. He does not want to get in touch with his other children, but does not mind getting in touch with son Jamshid (if we can find him). As he was found on the ground, question is whether he may have hit his head, he has been providing inconsistent history, and does not remember falling today. Yesterday he claimed that he may have hit his head, but not sure. CT of the he ad without acute abnormality. Status: Acute (2) Atrial fibrillation by electrocardiography: Incidentally noted atrial fibrillation, on 09/11 brief episode of tachycardia over about 10 minutes up to 140s, irregular, atrial fibrillation with RVR. Started on metoprolol, heart rates without further elevation, remains in the 60s and 70s. Given fall, questionable safety awareness, anticoagulation would not be safe at this time, perhaps aspirin could be considered but with similar concerns. Status: Acute (3) Fall: Does not recall falling down or how he ended up in the hospital. Appears to give different story to different people, to me he said he may have slipped on some water getting out of bed. Case management he had said he just got weak and his knees try to get up from the toilet. PT, OT Orthostatics were okay. Unremarkable UA. Does remember hitting his head on the edge of the bed. Plain CT of the head unremarkable. States normally ambulates with a [place] cane. Status: Acute (4) HTN (hypertension): Started on metoprolol. Blood pressures are better. Monitor. Cardiac diet, monitor blood pressure. Metoprolol as above. Status: Acute (5) Shoulder pain: Shoulder pain with elevation of the right arm, active or passive. 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 Status: Acute Attestations Medical Necessity Statement*: Patient requires hospitalization, pursuing guardianship Coding Level of Care Code Acute Dental Office Receptionist for [facility] Fw Diagnoses Acute confusion R41.0 Atrial fibrillation by electrocardiography I48.91 Fall W19.XXXA HTN (hypertension) I10 Shoulder pain M25.519
[2021-09-21 03:59] VITALS: BP 148/87; PULSE 70; RESP 18; TEMP 36.4; O2SAT 98
[2021-09-21 07:47] VITALS: BP 142/78; PULSE 72; RESP 18; O2SAT 93
[2021-09-21] MEDS: metoprolol tartrate 25 mg Tablet PO ×2 (09:55→21:38)
[2021-09-21] MEDS: cyanocobalamin 1,000 mcg Tablet 1000 MCG PO (09:55)
[2021-09-21 11:02] VITALS: BP 134/75; PULSE 78; RESP 18; TEMP 36.7; O2SAT 94
--- NOTE | 2021-09-21 13:13 | PM.PN ---
Subjective Subjective: Patient was seen this morning, he is a bit upset that have woken up up early Wednesday morning Vitals/I&O/Wt Last Vital Signs Temp 98.1 F 09/21/21 11:02 Pulse 78 09/21/21 11:02 Resp 18 09/21/21 11:02 BP 134/75 09/21/21 11:02 Pulse Ox 94 09/21/21 11:02 09/20/21 09/21/21 09/21/21 22:59 06:59 14:59 Intake Total 240 / 830 240 / 1070 600 / 600 Output Total 550 / 550 500 / 1050 450 / 450 Balance -310 / 280 -260 / 20 150 / 150 Physical Exam Const: COMMON NORMALS: no acute distress Resp: COMMON NORMALS: normal respiratory effort, No retractions, No use of accessory muscles and clear to auscultation bilaterally AUSCULTATION: clear to auscultation bilaterally Cardio: COMMON NORMALS: regular rate, regular rhythm, S1 normal heart sound present and S2 normal heart sound present RATE: regular rate RHYTHM: regular rhythm HEART SOUNDS: S1 normal heart sound present and S2 normal heart sound present GI: COMMON NORMALS: Normal to inspection, nondistended, normoactive bowel sounds present, Soft to palpation, non-tender, No hepatosplenomegaly present, no masses and no bruits PALPATION: Yes Soft to palpation and Yes No hepatosplenomegaly present Extremity: COMMON NORMALS: no pedal edema Data : 09/11/21 04:53 09/11/21 04:53 A&P Assessment and plan (1) Acute confusion: -Likely secondary to underlying Alzheimer's dementia -Is alert to person, not to place, not to time, does have significant short-term memory loss, does have long-term memory -Follows commands -Unfortunately no reachable family, no contacts, nobody has called about his whereabouts, we are unable to reach any friends or family -Certainly this is a difficult situation -Does have B12 deficiency, 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 Alcohol status is unknown -Cardiac echo 1.? This is a technically difficult study with no parasternal ?windows.? Optison was used per protocol. ?2.? Normal left ventricular cavity size and systolic function. ?Left ventricular ejection fraction is estimated at 70 %. No ?regional wall motion abnormalities. ?3. Probably mildly stenotic aortic valve with peak velocity of ?2.3 m/s and mean gradient 14 mmHg. ?4. No prior similar studies to compare. -Carotid artery ultrasound Diffuse bilateral scattered calcified plaque and intimal ?thickening throughout the common carotid arteries and extending ?through the bifurcation. Mild elevation of systolic velocity but ?no high grade stenosis. Plaque surface is irregular. ?Antegrade vertebral arteries. -Repeat CT of the head -1.? No acute intracranial hemorrhage or edema. 2.? Atrophy and small vessel ischemic changes and lacunar infarcts are stable. Had MRI -1.? No evidence of restricted diffusion to suggest acute ischemia. 2.? Moderate small vessel changes with advanced parenchymal volume loss worse in the frontal and temporal lobes. 3.? Chronic lacunar infarcts in the periventricular white matter and RIGHT greater than LEFT atwood radiata. 4.? Paranasal sinuses and mastoid air cells well aerated. 5.? No other significant findings. -Pursuing guardianship Bilateral knee osteoarthritis, PT OT, hydrocodone There is been no changes in his condition. He remains awake, alert, pleasant, cooperative, but with short-term more than long-term memory deficits. Requested psychiatry evaluation with regards to capacity to make decisions regarding his care. Additional information again pointing to more chronic progressive cognitive decline from caregiver, patient has not been getting out of bed now in a while, at times soiling himself in the bed. Folate normal but B12 low at 195. Receiving B12 replacement. Likely chronic process like dementia. With noted prior consideration of guardianship at [place]. Did not do well on living skills evaluation with OT, showing unable to live at home independently. Recommendation for SNF. CM working with him. He is very pleasant and conversant. He is having difficulties with short-term memory, although tells me historical details from more distant past. Does not appear to have acute infection or metabolic abnormality on work-up so far. Additional studies included UA, unremarkable. TSH normal. He is noted to be in atrial fibrillation incidentally. Concerning part is that he appears to have lack of memory or understanding that he was found down on a wellness check, and this does not appear to concern him or give concern whether it may happen again. Discussed with case management, we will try to see if we can find a way to contact his son, Jamshid Mendoza. He does not want to get in touch with his other children, but does not mind getting in touch with son Jamshid (if we can find him). As he was found on the ground, question is whether he may have hit his head, he has been providing inconsistent history, and does not remember falling today. Yesterday he claimed that he may have hit his head, but not sure. CT of the head without acute abnormality. Status: Acute (2) Atrial fibrillation by electrocardiography: Incidentally noted atrial fibrillation, on 09/11 brief episode of tachycardia over about 10 minutes up to 140s, irregular, atrial fibrillation with RVR. Started on metoprolol, heart rates without further elevation, remains in the 60s and 70s. Given fall, questionable safety awareness, anticoagulation would not be safe at this time, perhaps aspirin could be considered but with similar concerns. Status: Acute (3) Fall: Does not recall falling down or how he ended up in the hospital. Appears to give different story to different people, to me he said he may have slipped on some water getting out of bed. Case management he had said he just got weak and his knees try to get up from the toilet. PT, OT Orthostatics were okay. Unremarkable UA. Does remember hitting his head on the edge of the bed. Plain CT of the head unremarkable. States normally ambulates with a [place] cane. Status: Acute (4) HTN (hypertension): Started on metoprolol. Blood pressures are better. Monitor. Cardiac diet, monitor blood pressure. Metoprolol as above. Status: Acute (5) Shoulder pain: Shoulder pain with elevation of the right arm, active or passive. 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 Status: Acute Attestations Medical Necessity Statement*: Patient requires hospitalization due to Alzheimer's dementia Coding Level of Care Code Acute Motor And Generator Brush Cutter for [facility] Fw Diagnoses Acute confusion R41.0 Atrial fibrillation by electrocardiography I48.91 Fall W19.XXXA HTN (hypertension) I10 Shoulder pain M25.519
[2021-09-21 15:21] VITALS: BP 129/74; PULSE 71; RESP 17; O2SAT 93
[2021-09-21 19:32] VITALS: BP 120/84; PULSE 80; RESP 20; TEMP 36.9; O2SAT 93
[2021-09-21 23:39] VITALS: BP 136/88; PULSE 65; RESP 20; TEMP 36.9; O2SAT 96
[2021-09-22 04:20] VITALS: BP 143/85; PULSE 74; RESP 18; TEMP 36.9; O2SAT 97
[2021-09-22] MEDS: cyanocobalamin 1,000 mcg Tablet 1000 MCG PO (09:07)
[2021-09-22] MEDS: metoprolol tartrate 25 mg Tablet PO ×2 (09:08→21:34)
[2021-09-22 11:59] VITALS: BP 119/89; PULSE 72; RESP 14; O2SAT 99
--- NOTE | 2021-09-22 13:33 | P.PN_ITS ---
Subjective Subjective: Patient was seen this morning he has no complaints, he is reading his western novel, he is almost finished and he tells me Vitals/I&O/Wt Last Vital Signs Temp 98.5 F 09/22/21 04:20 Pulse 72 09/22/21 11:59 Resp 14 09/22/21 11:59 BP 119/89 09/22/21 11:59 Pulse Ox 99 09/22/21 11:59 09/21/21 09/22/21 09/22/21 22:59 06:59 14:59 Intake Total 360 / 960 200 / 1160 1320 / 1320 Output Total 100 / 550 625 / 1175 Balance 260 / 410 -425 / -15 1320 / 1320 Physical Exam Const: COMMON NORMALS: no acute distress Resp: COMMON NORMALS: normal respiratory effort, No retractions, No use of accessory muscles and clear to auscultation bilaterally AUSCULTATION: clear to auscultation bilaterally Cardio: COMMON NORMALS: regular rate, regular rhythm, S1 normal heart sound present and S2 normal heart sound present RATE: regular rate RHYTHM: regular rhythm HEART SOUNDS: S1 normal heart sound present and S2 normal heart sound present GI: COMMON NORMALS: Normal to inspection, nondistended, normoactive bowel sounds present, Soft to palpation and non-tender PALPATION: Yes Soft to palpation Extremity: COMMON NORMALS: no pedal edema Data : 09/11/21 04:53 09/11/21 04:53 A&P Assessment and plan (1) Acute confusion: -Likely secondary to underlying Alzheimer's dementia -Is alert to person, not to place, not to time, does have significant short-term memory loss, does have long-term memory -Follows commands -Unfortunately no reachable family, no contacts, nobody has called about his whereabouts, we are unable to reach any friends or family -Certainly this is a difficult situation -Does have B12 deficiency, 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 Alcohol status is unknown -Cardiac echo 1.? This is a technically difficult study with no parasternal ?windows.? Optison was used per protocol. ?2.? Normal left ventricular cavity size and systolic function. ?Left ventricular ejection fraction is estimated at 70 %. No ?regional wall motion abnormalities. ?3. Probably mildly stenotic aortic valve with peak velocity of ?2.3 m/s and mean gradient 14 mmHg. ?4. No prior similar studies to compare. -Carotid artery ultrasound Diffuse bilateral scattered calcified plaque and intimal ?thickening throughout the common carotid arteries and extending ?through the bifurcation. Mild elevation of systolic velocity but ?no high grade stenosis. Plaque surface is irregular. ?Antegrade vertebral arteries. -Repeat CT of the head -1.? No acute intracranial hemorrhage or edema. 2.? Atrophy and small vessel ischemic changes and lacunar infarcts are stable. Had MRI -1.? No evidence of restricted diffusion to suggest acute ischemia. 2.? Moderate small vessel changes with advanced parenchymal volume loss worse in the frontal and temporal lobes. 3.? Chronic lacunar infarcts in the periventricular white matter and RIGHT greater than LEFT atwood radiata. 4.? Paranasal sinuses and mastoid air cells well aerated. 5.? No other significant findings. -Pursuing guardianship Bilateral knee osteoarthritis, PT OT, hydrocodone There is been no changes in his condition. He remains awake, alert, pleasant, cooperative, but with short-term more than long-term memory deficits. Requested psychiatry evaluation with regards to capacity to make decisions regarding his care. Additional information again pointing to more chronic progressive cognitive decline from caregiver, patient has not been getting out of bed now in a while, at times soiling himself in the bed. Folate normal but B12 low at 195. Receiving B12 replacement. Likely chronic process like dementia. With noted prior consideration of guardianship at [place]. Did not do well on living skills evaluation with OT, showing unable to live at home independently. Recommendation for SNF. CM working with him. He is very pleasant and conversant. He is having difficulties with short-term memory, although tells me historical details from more distant past. Does not appear to have acute infection or metabolic abnormality on work-up so far. Additional studies included UA, unremarkable. TSH normal. He is noted to be in atrial fibrillation incidentally. Concerning part is that he appears to have lack of memory or understanding that he was found down on a wellness check, and this does not appear to concern him or give concern whether it may happen again. Discussed with case management, we will try to see if we can find a way to contact his son, Jamshid Mendoza. He does not want to get in touch with his other children, but does not mind getting in touch with son Jamshid (if we can find him). As he was found on the ground, question is whether he may have hit his head, he has been providing inconsistent history, and does not remember falling today. Yesterday he claimed that he may have hit his head, but not sure. CT of the head without acute abnormality. Status: Acute (2) Atrial fibrillation by electrocardiography: Incidentally noted atrial fibrillation, on 09/11 brief episode of tachycardia over about 10 minutes up to 140s, irregular, atrial fibrillation with RVR. Started on metoprolol, heart rates without further elevation, remains in the 60s and 70s. Given fall, questionable safety awareness, anticoagulation would not be safe at this time, perhaps aspirin could be considered but with similar concerns. Status: Acute (3) Fall: Does not recall falling down or how he ended up in the hospital. Appears to give different story to different people, to me he said he may have slipped on some water getting out of bed. Case management he had said he just got weak and his knees try to get up from the toilet. PT, OT Orthostatics were okay. Unremarkable UA. Does remember hitting his head on the edge of the bed. Plain CT of the head unremarkable. States normally ambulates with a [place] cane. Status: Acute (4) HTN (hypertension): Started on metoprolol. Blood pressures are better. Monitor. Cardiac diet, monitor blood pressure. Metoprolol as above. Status: Acute (5) Shoulder pain: Shoulder pain with elevation of the right arm, active or passive. XR w osteoarthritic changes within the right glenohumeral joint and acrom ioclavicular joint. Status: Acute Attestations Medical Necessity Statement*: Patient requires hospitalization requiring guarding Coding Level of Care Code Acute Information Services Manager for [facility] Fwd Diagnoses Acute confusion R41.0 Atrial fibrillation by electrocardiography I48.91 Fall W19.XXXA HTN (hypertension) I10 Shoulder pain M25.519
[2021-09-22 20:00] VITALS: BP 131/74; PULSE 77; RESP 17; TEMP 36.3; O2SAT 94
[2021-09-23] VITALS: BP 135/84; PULSE 68; RESP 18; TEMP 36.8; O2SAT 94
[2021-09-23 04:00] VITALS: BP 127/78; PULSE 82; RESP 17; TEMP 36.8; O2SAT 93
[2021-09-23 08:00] VITALS: BP 122/87; PULSE 96; RESP 18; TEMP 36.6; O2SAT 96
[2021-09-23] MEDS: metoprolol tartrate 25 mg Tablet PO ×2 (09:09→20:49)
[2021-09-23] MEDS: cyanocobalamin 1,000 mcg Tablet 1000 MCG PO (09:09)
[2021-09-23 11:42] VITALS: BP 148/82; PULSE 68; RESP 12; TEMP 36.6; O2SAT 97
[2021-09-23 16:00] VITALS: BP 119/78; PULSE 66; RESP 18; TEMP 36.4; O2SAT 95
[2021-09-23 19:34] VITALS: BP 98/65; PULSE 76; RESP 17; TEMP 36.1; O2SAT 96
--- NOTE | 2021-09-23 19:34 | PC.NURSE ---
i reported low temp 97.0 to nurse
--- NOTE | 2021-09-23 19:56 | P.PN_ITS ---
Subjective Subjective: Denies any complaints, other than having very bad knees, feeling a hard time walking. She tries to get up, but cannot manage very much. Vitals/I&O/Wt Last Vital Signs Temp 97.0 F L 09/23/21 19:34 Pulse 76 09/23/21 19:34 Resp 17 09/23/21 19:34 BP 98/65 09/23/21 19:34 Pulse Ox 96 09/23/21 19:34 09/23/21 09/23/21 09/23/21 06:59 14:59 22:59 Intake Total 600 / 600 240 / 840 Output Total 200 / 1000 Balance -200 / 800 600 / 600 240 / 840 Physical Exam Const: COMMON NORMALS: alert GENERAL APPEARANCE: cooperative NUTRITIONAL APPEARANCE: obese ORIENTATION/CONSCIOUSNESS: Yes awake OTHER: [place] HENMT: COMMON NORMALS: normocephalic, EAC's normal, Normal external nose present and moist oral mucous membranes HEAD & SCALP: normocephalic NOSE: Normal external nose present EXTERNAL AUDITORY CANAL: EAC's normal Neck/C-Spine: COMMON NORMALS: no meningeal signs Chest: CHEST: Yes Symmetrical chest wall rise Resp: COMMON NORMALS: clear to auscultation bilaterally AUSCULTATION: clear to auscultation bilaterally Cardio: COMMON NORMALS: regular rate, regular rhythm and No murmurs present (Cardio) RATE: regular rate RHYTHM: regular rhythm GI: COMMON NORMALS: Normal to inspection, nondistended, normoactive bowel sounds present, Soft to palpation and non-tender PALPATION: Yes Soft to palpation Extremity: COMMON NORMALS: no pedal edema Neuro: COMMON NORMALS: moves all extremities SENSORIUM/ORIENTATION: Yes alert MENINGEAL SIGNS: Yes no meningeal signs Psych: COMMON NORMALS: mental status grossly normal Skin: COMMON NORMALS: no wounds RASHES: no rashes Data : 09/11/21 04:53 09/11/21 04:53 A&P Assessment and plan (1) Acute confusion: No additional changes in his condition, although he does recall that the month is September. He cannot exactly tell me how he was found at home, although tells me that his friend was not there, although this appears to conflict with additional report of wellness check. 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 Alcohol status is unknown -Cardiac echo 1.? This is a technically difficult study with no parasternal ?windows.? Optison was used per protocol. ?2.? Normal left ventricular cavity size and systolic function. ?Left ventricular ejection fraction is estimated at 70 %. No ?regional wall motion abnormalities. ?3. Probably mildly stenotic aortic valve with peak velocity of ?2.3 m/s and mean gradient 14 mmHg. ?4. No prior similar studies to compare. -Carotid artery ultrasound Diffuse bilateral scattered calcified plaque and intimal ?thickening throughout the common carotid arteries and extending ?through the bifurcation. Mild elevation of systolic velocity but ?no high grade stenosis. Plaque surface is irregular. ?Antegrade vertebral arteries. -Repeat CT of the head -1.? No acute intracranial hemorrhage or edema. 2.? Atrophy and small vessel ischemic changes and lacunar infarcts are stable. Had MRI -1.? No evidence of restricted diffusion to suggest acute ischemia. 2.? Moderate small vessel changes with advanced parenchymal volume loss worse in the frontal and temporal lobes. 3.? Chronic lacunar infarcts in the periventricular white matter and RIGHT greater than LEFT atwood radiata. 4.? Paranasal sinuses and mastoid air cells well aerated. 5.? No other significant findings. -Pursuing guardianship Bilateral knee osteoarthritis, PT OT, hydrocodone Additional information again pointing to more chronic progressive cognitive decline from caregiver, patient has not been getting out of bed now in a while, at times soiling himself in the bed. Continue B12 replacement Likely chronic process like dementia. Follow-up with neurology. Status: Acute (2) Atrial fibrillation by electrocardiography: Continue metoprolol Incidentally noted atrial fibrillation, on 09/11 brief episode of tachycardia over about 10 minutes up to 140s, irregular, atrial fibrillation with RVR. Started on metoprolol, heart rates without further elevation, remains in the 60s and 70s. Given fall, questionable safety awareness, anticoagulation would not be safe at this time, perhaps aspirin could be considered but with similar concerns. Status: Acute (3) Fall: Continue mobilization with therapy Status: Acute (4) HTN (hypertension): Started on metoprolol. Blood pressures are better. Monitor. Cardiac diet, monitor blood pressure. Metoprolol as above. Status: Acute (5) Shoulder pain: Shoulder pain with elevation of the right arm, active or passive. 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 Status: Acute Attestations 2 Medical Necessity Statement*: Continue admission pending guardianship, continue mobilization with therapy, arrangements for rehabilitation. Coding Level of Care Code Acute Buffet Attendant for [facility] Fw Diagnoses Acute confusion R41.0 Atrial fibrillation by electrocardiography I48.91 Fall W19.XXXA HTN (hypertension) I10 Shoulder pain M25.519
[2021-09-24] VITALS: BP 110/71; PULSE 72; RESP 17; O2SAT 93
[2021-09-24 04:00] VITALS: BP 104/69; PULSE 68; RESP 17; TEMP 36.6; O2SAT 90
[2021-09-24 07:41] VITALS: BP 125/79; PULSE 74; RESP 16; TEMP 36.5; O2SAT 96
[2021-09-24] MEDS: cyanocobalamin 1,000 mcg Tablet 1000 MCG PO (08:57)
[2021-09-24] MEDS: metoprolol tartrate 25 mg Tablet PO ×2 (08:57→21:00)
[2021-09-24 11:37] VITALS: BP 109/75; PULSE 73; RESP 16; TEMP 36.6; O2SAT 96
[2021-09-24 15:49] VITALS: BP 116/74; PULSE 74; RESP 16; TEMP 36.4; O2SAT 95
--- NOTE | 2021-09-24 19:04 | P.PN_ITS ---
Subjective Subjective: Reports he is doing well. Denies any pain discomfort. No headache dizziness. No vision changes. Nothing is bothering me. I just got bad knees . Vitals/I&O/Wt Last Vital Signs Temp 97.6 F 09/24/21 15:49 Pulse 74 09/24/21 15:49 Resp 16 09/24/21 15:49 BP 116/74 09/24/21 15:49 Pulse Ox 95 09/24/21 15:49 09/24/21 09/24/21 09/24/21 06:59 14:59 22:59 Intake Total 720 / 720 240 / 960 Output Total 300 / 300 Balance -300 / 540 720 / 720 240 / 960 Physical Exam Const: COMMON NORMALS: alert GENERAL APPEARANCE: cooperative NUTRITIONAL APPEARANCE: obese ORIENTATION/CONSCIOUSNESS: Yes awake OTHER: [place] HENMT: COMMON NORMALS: normocephalic, EAC's normal, Normal external nose present and moist oral mucous membranes HEAD & SCALP: normocephalic NOSE: Normal external nose present EXTERNAL AUDITORY CANAL: EAC's normal Neck/C-Spine: COMMON NORMALS: no meningeal signs Chest: CHEST: Yes Symmetrical chest wall rise Resp: COMMON NORMALS: clear to auscultation bilaterally AUSCULTATION: clear to auscultation bilaterally Cardio: COMMON NORMALS: regular rate, regular rhythm and No murmurs present (Cardio) RATE: regular rate RHYTHM: regular rhythm GI: COMMON NORMALS: Normal to inspection, nondistended, normoactive bowel sounds present, Soft to palpation and non-tender PALPATION: Yes Soft to palpation Extremity: COMMON NORMALS: no pedal edema Neuro: COMMON NORMALS: moves all extremities SENSORIUM/ORIENTATION: Yes alert MENINGEAL SIGNS: Yes no meningeal signs Psych: COMMON NORMALS: mental status grossly normal Skin: COMMON NORMALS: no wounds RASHES: no rashes Data : 09/11/21 04:53 09/11/21 04:53 A&P Assessment and plan (1) Unable to function independently: Likely combination of chronic process, progressive Alzheimer's dementia, pro gressive debility, appreciate PT and OT follow-up. Dependent x2 and max assist for bed mobility and rolling in bed. Noted incontinent of bowel, and with dependence and toileting hygiene. Continue mobilization with therapy. Arrangements for SNF. Continue arrangements for guardianship. Continue B12 replacement. Follow-up with neurology. 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 Alcohol status is unknown -Cardiac echo 1.? This is a technically difficult study with no parasternal ?windows.? Optison was used per protocol. ?2.? Normal left ventricular cavity size and systolic function. ?Left ventricular ejection fraction is estimated at 70 %. No ?regional wall motion abnormalities. ?3. Probably mildly stenotic aortic valve with peak velocity of ?2.3 m/s and mean gradient 14 mmHg. ?4. No prior similar studies to compare. -Carotid artery ultrasound Diffuse bilateral scattered calcified plaque and intimal ?thickening throughout the common carotid arteries and extending ?through the bifurcation. Mild elevation of systolic velocity but ?no high grade stenosis. Plaque surface is irregular. ?Antegrade vertebral arteries. -Repeat CT of the head -1.? No acute intracranial hemorrhage or edema. 2.? Atrophy and small vessel ischemic changes and lacunar infarcts are stable. Had MRI -1.? No evidence of restricted diffusion to suggest acute ischemia. 2.? Moderate small vessel changes with advanced parenchymal volume loss worse in the frontal and temporal lobes. 3.? Chronic lacunar infarcts in the periventricular white matter and RIGHT great er than LEFT atwood radiata. 4.? Paranasal sinuses and mastoid air cells well aerated. 5.? No other significant findings. -Pursuing guardianship Bilateral knee osteoarthritis, PT OT, hydrocodone Chronic progressive cognitive decline from caregiver, patient has not been getting out of bed now in a while, at times soiling himself in the bed. Continue B12 replacement Likely chronic process like dementia. Follow-up with neurology. Status: Acute (3) Atrial fibrillation by electrocardiography: Continue metoprolol Incidentally noted atrial fibrillation, on 09/11 brief episode of tachycardia over about 10 minutes up to 140s, irregular, atrial fibrillation with RVR. Started on metoprolol, heart rates without further elevation, remains in the 60s and 70s. Given fall, questionable safety awareness, anticoagulation would not be safe at this time, perhaps aspirin could be considered but with similar concerns. Status: Acute (4) Fall: Continue mobilization with therapy Status: Acute (5) HTN (hypertension): Started on metoprolol. Blood pressures are better. Monitor. Cardiac diet, monitor blood pressure. Metoprolol as above. Status: Acute (6) Shoulder pain: Shoulder pain with elevation of the right arm, active or passive. XR w osteoarthritic changes within the right glenohumeral joint and acromioclav icular joint. Status: Acute Attestations Medical Necessity Statement*: Continue arrangements for guardianship, arrangements for placement to SNF, continued skilled care. 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
[2021-09-24 20:00] VITALS: BP 122/76; PULSE 79; RESP 17; TEMP 36.6; O2SAT 97
[2021-09-25] VITALS (7 sets, daily range): BP systolic 106–126; BP diastolic 70–84; PULSE 63–88; RESP 16–18; TEMP 36.4–37.2; O2SAT 93–97
[2021-09-25] MEDS: metoprolol tartrate 25 mg Tablet PO ×2 (10:07→22:23)
[2021-09-25] MEDS: cyanocobalamin 1,000 mcg Tablet 1000 MCG PO (10:07)
--- NOTE | 2021-09-25 15:32 | PM.PN ---
Subjective Subjective: During visit noted slid down in bed, both legs bent, resting on footboard. When asked how he got that way, states not sure, just woke up this way. Cannot get himself scooted back up. When asked if he had asked for help, states no, although tried pushing some blood in the left bedrail. Call light accessibility bottom visible within reach, passed on to him and instructed on use. Requested assistance with repositioning. Vitals/I&O/Wt Last Vital Signs Temp 98.5 F 09/25/21 12:00 Pulse 70 09/25/21 12:00 Resp 18 09/25/21 04:00 BP 121/84 09/25/21 07:41 Pulse Ox 93 09/25/21 12:00 09/25/21 09/25/21 09/25/21 06:59 14:59 22:59 Intake Total 600 / 600 Output Total 460 / 760 Balance -460 / 701 600 / 600 Physical Exam Narrative: Cannot readjust himself after sliding down in bed, does not remember how to activate call light. Const: COMMON NORMALS: alert GENERAL APPEARANCE: cooperative NUTRITIONAL APPEARANCE: obese ORIENTATION/CONSCIOUSNESS: Yes awake OTHER: [place] HENMT: COMMON NORMALS: normocephalic, EAC's normal, Normal external nose present and moist oral mucous membranes HEAD & SCALP: normocephalic NOSE: Normal external nose present EXTERNAL AUDITORY CANAL: EAC's normal Neck/C-Spine: COMMON NORMALS: no meningeal signs Chest: CHEST: Yes Symmetrical chest wall rise Resp: COMMON NORMALS: clear to auscultation bilaterally AUSCULTATION: clear to auscultation bilaterally Cardio: COMMON NORMALS: regular rate, regular rhythm and No murmurs present (Cardio) RATE: regular rate RHYTHM: regular rhythm GI: COMMON NORMALS: Normal to inspection, nondistended, normoactive bowel sounds present, Soft to palpation and non-tender PALPATION: Yes Soft to palpation Extremity: COMMON NORMALS: no pedal edema Neuro: COMMON NORMALS: moves all extremities SENSORIUM/ORIENTATION: Yes alert MENINGEAL SIGNS: Yes no meningeal signs Psych: COMMON NORMALS: mental status grossly normal Skin: COMMON NORMALS: no wounds RASHES: no rashes Data : 09/11/21 04:53 09/11/21 04:53 A&P Assessment and plan (1) Unable to function independently: Likely combination of chronic process, progressive Alzheimer's dementia, progressive debility, appreciate PT and OT follow-up. Requested for assistance today to reposition him as he had slid down in bed, could not get himself adjusted, did not remember how to activate call light. Continue mobilization with therapy. Arrangements for SNF. Continue arrangements for guardianship. Continue B12 replacement. Follow-up with neurology. 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 Alcohol status is unknown -Cardiac echo 1.? This is a technically difficult study with no parasternal ?windows.? Optison was used per protocol. ?2.? Normal left ventricular cavity size and systolic function. ?Left ventricular ejection fraction is estimated at 70 %. No ?regional wall motion abnormalities. ?3. Probably mildly stenotic aortic valve with peak velocity of ?2.3 m/s and mean gradient 14 mmHg. ?4. No prior similar studies to compare. -Carotid artery ultrasound Diffuse bilateral scattered calcified plaque and intimal ?thickening throughout the common carotid arteries and extending ?through the bifurcation. Mild elevation of systolic velocity but ?no high grade stenosis. Plaque surface is irregular. ?Antegrade vertebral arteries. -Repeat CT of the head -1.? No acute intracranial hemorrhage or edema. 2.? Atrophy and small vessel ischemic changes and lacunar infarcts are stable. Had MRI -1.? No evidence of restricted diffusion to suggest acute ischemia. 2.? Moderate small vessel changes with advanced parenchymal volume loss worse in the frontal and temporal lobes. 3.? Chronic lacunar infarcts in the periventricular white matter and RIGHT greater than LEFT atwood radiata. 4.? Paranasal sinuses and mastoid air cells well aerated. 5.? No other significant findings. -Pursuing guardianship Bilateral knee osteoarthritis, PT OT, hydrocodone Chronic progressive cognitive decline from caregiver, patient has not been getting out of bed now in a while, at times soiling himself in the bed. Continue B12 replacement Likely chronic process like dementia. Follow-up with neurology. Status: Acute (3) Atrial fibrillation by electrocardiography: Continue metoprolol Incidentally noted atrial fibrillation, on 09/11 brief episode of tachycardia over about 10 minutes up to 140s, irregular, atrial fibrillation with RVR. Started on metoprolol, heart rates without further elevation, remains in the 60s and 70s. Given fall, questionable safety awareness, anticoagulation would not be safe at this time, perhaps aspirin could be considered but with similar concerns. Status: Acute (4) Fall: Continue mobilization with therapy Status: Acute (5) HTN (hypertension): Started on metoprolol. Blood pressures are better. Monitor. Cardiac diet, monitor blood pressure. Metoprolol as above. Status: Acute (6) Shoulder pain: Shoulder pain with elevation of the right arm, active or passive. 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 Status: Acute Attestations Medical Necessity Statement*: Continue arrangements for guardianship, arrangements for placement to SNF, continued skilled care. Coding Level of Care Code Acute Bellman Driver for g Fwd Exam Comprehensive Diagnoses Unable to function independently Z78.9 Acute confusion R41.0 Atrial fibrillation by electrocardiography I48.91 Fall W19.XXXA HTN (hypertension) I10 Shoulder pain M25.519
[2021-09-25 17:35] LABS: SARS Covid-2 Antigen Negative (Negative)
[2021-09-26 04:32] VITALS: BP 104/72; PULSE 72; RESP 20; TEMP 37.1; O2SAT 95
[2021-09-26 08:00] VITALS: BP 113/78; PULSE 70; RESP 18; TEMP 36.9; O2SAT 93
[2021-09-26] MEDS: metoprolol tartrate 25 mg Tablet PO (08:43)
[2021-09-26] MEDS: cyanocobalamin 1,000 mcg Tablet 1000 MCG PO (08:43)
[2021-09-26 12:00] VITALS: BP 106/69; PULSE 86; RESP 18; TEMP 36.8; O2SAT 96
--- NOTE | 2021-09-26 12:22 | P.DS_ITS ---
Discharge Providers Date of Admission: 09/10/21 16:41 Date of Discharge: September 26, 2021 Attending Provider at Admission: Amadou Gould Attending Provider at Discharge: Amadou Gould Diagnoses at Discharge Discharge Diagnosis (1) Unable to function independently: Status: Acute (2) Acute confusion: Status: Acute (3) Atrial fibrillation by electrocardiography: Status: Acute (4) Fall: Status: Acute (5) HTN (hypertension): Status: Acute (6) Shoulder pain: Status: Acute Reason for Visit Reason for Visit: FELL HIT HEAD Hospital Course Hospital Course Pleasant 81-year-old gentleman living alone, not in touch with his family, has been having progressive functional decline, recently with caregiver coming to his house, was found down on the floor by custom protection officer on a wellness check and brought in by EMS, could not provide history, initially consideration was of possible acute encephalopathy/confusion, and so additionally underwent investigation in the hospital, however, so far without findings of infection, with some noted atrial fibrillation, short episode of A. fib with RVR, continues on metoprolol, also for hypertension, not on anticoagulation or antiplatelet due to fall risk. Daily had an MRI of the brain were assessed as well, without evidence of acute ischemia. Moderate small vessel changes noted on MRI with advanced parenchymal volume loss worse in frontal and temporal lobes. 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 Paranasal sinuses and mastoid air cells well aerated. No other significant findings. Noted to have B12 level mildly low for which he is on supplementation. Electrolytes, thyroid function, ammonia unremarkable. He had no evidence of anemia. Echocardiogram with normal ejection fraction, no R WMA. 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 Here found to be unable to function independently on multiple assessments by multiple staff, and without improvement in functional capacity. He does appear to be mostly oriented to year, place and occasionally month. Per information from his caregiver, although he has told us he had been getting up and ambulating with a cane, he has not done so in a while, of which he did not seem concerned. He has also been noted swelling himself in bed, and not knowing when to or how to seek for help. Concern is for chronic progressive condition with high suspicion of dementia. As he is not able to express his needs or concerns, stating nothing is wrong apart from bad knees , unable to medical decision making. Arrangements are underway to seek guardianship, and as he requires further skilled care arrangements for management over at SNF. Is referred for additional reassessment in neurology clinic. Is a fall risk decreases on reassessment, consider addition of antiplatelet agent. Consider anticoagulation, although this is not likely to be safe. Physical Exam Const: COMMON NORMALS: alert GENERAL APPEARANCE: cooperative NUTRITIONAL APPEARANCE: obese ORIENTATION/CONSCIOUSNESS: Yes awake OTHER: [place] HENMT: COMMON NORMALS: normocephalic, EAC's normal, Normal external nose present and moist oral mucous membranes HEAD & SCALP: normocephalic NOSE: Normal external nose present EXTERNAL AUDITORY CANAL: EAC's normal Neck/C-Spine: COMMON NORMALS: no meningeal signs Chest: CHEST: Yes Symmetrical chest wall rise Resp: COMMON NORMALS: clear to auscultation bilaterally AUSCULTATION: clear to auscultation bilaterally Cardio: COMMON NORMALS: regular rate, regular rhythm and No murmurs present (Cardio) RATE: regular rate RHYTHM: regular rhythm GI: COMMON NORMALS: Normal to inspection, nondistended, normoactive bowel sounds present, Soft to palpation and non-tender PALPATION: Yes Soft to palpation Extremity: COMMON NORMALS: no pedal edema Neuro: COMMON NORMALS: moves all extremities SENSORIUM/ORIENTATION: Yes alert MENINGEAL SIGNS: Yes no meningeal signs Psych: COMMON NORMALS: mental status grossly normal Skin: COMMON NORMALS: no wounds RASHES: no rashes Discharge Data Studies Completed and Pending Completed Studies During Hospitalization Category Date Time Status CT head wo con* [id number] Routine Cat Scan 09/16/21 12:[address] head wo con* [id number] Urgent Cat Scan 09/10/21 13:43 Completed XR chest 1V portable [id number] Urgent Exams 09/10/21 14:06 Completed XR shoulder RT min 2V* [id number] Routine Exams 09/12/21 16:35 Completed MR head wo con* [id number] Routine MRI 09/18/21 08:00 Completed CV. echo wo/w contrast [id number] Routine Ultrasound 09/16/21 11:01 Completed US carotid duplex bilateral [CV carotid duplex BI* Ultrasound 09/16/21 11:01 Completed [id number]] Routine Radiology Impressions Chest X-Ray 09/10/21 14:06 IMPRESSION: 1. No acute cardiopulmonary finding. Shoulder X-Ray 09/12/21 16:35 IMPRESSION: Osteoarthritic changes within the right glenohumeral joint and acromioclavicular joint. Head CT 09/16/21 12:06 IMPRESSION: 1. No acute intracranial hemorrhage or edema. 2. Atrophy and small vessel ischemic changes and lacunar infarcts are stable. Head MRI 09/18/21 08:00 IMPRESSION: 1. No evidence of restricted diffusion to suggest acute ischemia. 2. Moderate small vessel changes with advanced parenchymal volume loss worse in the frontal and temporal lobes. 3. Chronic lacunar infarcts in the periventricular white matter and RIGHT greater than LEFT [place]wood radiata. 4. Paranasal sinuses and mastoid air cells well aerated. 5. No other significant findings. Laboratory Results WBC 5.6 10^3/uL (4.0-10.0) 09/11/21 04:53 RBC 4.80 10^6/uL (4.1-5.3) 09/11/21 04:53 Hgb 14.2 g/dL (11.7-16.6) 09/11/21 04:53 Hct 45.1 % (42.0-52.0) 09/11/21 04:53 MCV 94.0 fl (80-94) D 09/11/21 04:53 MCH 29.6 pg (28.0-34.0) 09/11/21 04:53 MCHC 31.5 g/dL (30.0-36.0) D 09/11/21 04:53 RDW 15.1 % (12.1-15.1) 09/11/21 04:53 Plt Count 207 10^3/cmm (130-400) 09/11/21 04:53 MPV 9.8 fL (7.4-10.4) 09/11/21 04:53 Neut % (Auto) 56.3 % 09/11/21 04:53 Lymph % (Auto) 26.9 % 09/11/21 04:53 [place] % (Auto) 8.4 % 09/11/21 04:53 Eos % (Auto) 7.7 % 09/11/21 04:53 Baso % (Auto) 0.2 % 09/11/21 04:53 Neut # (Auto) 3.13 10^3/uL (1.8-7.7) 09/11/21 04:53 Lymph # (Auto) 1.5 10^3/uL (0.8-4.8) 09/11/21 04:53 [place] # (Auto) 0.5 10^3/uL (0.2-0.9) 09/11/21 04:53 Eos # (Auto) 0.4 10^3/uL (0.0-0.8) 09/11/21 04:53 Baso # (Auto) 0.0 10^3/uL (0.0-0.1) 09/11/21 04:53 Nucleated RBC % (auto) 0 % 09/11/21 04:53 Nucleated RBCs # 0.0 /100WBC 09/11/21 04:53 Sodium 140 mmol/L (136-145) 09/11/21 04:53 Potassium 3.7 mmol/L (3.5-5.1) 09/11/21 04:53 Chloride 105 mmol/L (98-107) 09/11/21 04:53 Carbon Dioxide 24 mmol/L (22-29) 09/11/21 04:53 Anion Gap 14.7 (5-19) 09/11/21 04:53 BUN 15 mg/dL (8-23) 09/11/21 04:53 Creatinine 0.9 mg/dL (0.7-1.2) 09/11/21 04:53 GFR Calculation Not Reportable 09/11/21 04:53 Glucose 108 mg/dL (65-115) 09/11/21 04:53 Calculated Osmolality 291 mOsm/kg (285-295) 09/11/21 04:53 Calcium 8.5 mg/dL (8.5-10.5) 09/11/21 04:53 Total Bilirubin 0.4 mg/dL (0.15-1.2) 09/11/21 04:53 AST 17 U/L (0-40) 09/11/21 04:53 ALT 10 U/L (0-41) 09/11/21 04:53 Alkaline Phosphatase 87 IU/L (40-130) 09/11/21 04:53 Ammonia 11 umol/L (16-60) L 09/10/21 17:43 Creatine Kinase 39 U/L (39-308) 09/10/21 15:20 Troponin T Baseline 33 ng/L (0-15) H 09/10/21 15:20 Troponin T 120 Minute 30.61 ng/L (0-15) H 09/10/21 17:43 Delta Troponin T -2.39 ABS# (0-10) L 09/10/21 17:43 Total Protein 6.3 g/dL (6.6-8.7) L 09/11/21 04:53 Albumin 3.0 g/dL (3.5-5.2) L 09/11/21 04:53 Globulin 3.3 g/dL (1.3-4.6) 09/11/21 04:53 Lipase 39 U/L (13-60) 09/10/21 15:20 Vitamin B12 195 pg/mL (232-1245) L 09/13/21 04:11 Folate 11.2 ng/mL (4.5-32.2) 09/13/21 04:11 TSH 1.60 uIU/mL (0.27-4.20) 09/10/21 15:20 Free T4 1.11 ng/dL (0.82-1.77) 09/10/21 15:20 Urine Color Yellow (Yellow) 09/11/21 00:01 Urine Appearance Clear (CLEAR) 09/11/21 00:01 Urine pH 5 (5-7) 09/11/21 00:01 Ur Specific [place] 1.025 (1.005-1.030) 09/11/21 00:01 Urine Protein Neg (Negative) 09/11/21 00:01 Urine Glucose (UA) Norm (Normal) 09/11/21 00:01 Urine Ketones Negative (Negative) 09/11/21 00:01 Urine Blood Neg (Negative) 09/11/21 00:01 Urine Nitrate Negative (Negative) 09/11/21 00:01 Urine Bilirubin 1+ (Negative) H 09/11/21 00:01 Urine Urobilinogen Norm mg/dL (Negative) 09/11/21 00:01 Ur Leukocyte Esterase Negative (Negative) 09/11/21 00:01 Salicylates < 0.3 mg/dL (3-10) L 09/10/21 15:20 Acetaminophen 6.8 ug/mL (10-30) L 09/10/21 15:20 SARS-CoV-2 Ag (Rapid) Negative (Negative) 09/25/21 17:00 Vitals Last Vital Signs Temp 98.4 F 09/26/21 08:00 Pulse 70 09/26/21 08:00 Resp 18 09/26/21 08:00 BP 113/78 09/26/21 08:00 Pulse Ox 93 09/26/21 08:00 Discharge Plan Discharge Patient Disposition: Xfer SNF Condition: Stable Prescriptions: New Vitamin B-12 1,000 mcg Tablet 1,000 mcg PO DAILY Qty: 90 0RF metoprolol tartrate 25 mg Tablet 25 mg PO BID@0900,2100 Qty: 90 0RF acetaminophen 650 mg tablet extended release 650 mg PO Q8H PRN (Reason: pain) Qty: 90 0RF atorvastatin 40 mg tablet 40 mg PO QPM Qty: 90 0RF Discharge Orders: Discharge Order (Routine); Ordered 09/26/21 Ordered By: Amadou Gould Referrals: Primary, provider [Other] - 4-7 days [facility] [Provider Group] - 2 weeks (Loss of ability to function independently, memory deficits, suspected dementia) Discharge Diet: Regular Discharge Activity: As per PT/OT instructions Patient Instructions: A-fib (Atrial Fibrillation) (GEN), Fall Prevention (GEN), Vitamin B12 Deficiency (GEN) Activity Restrictions/Additional Instructions: So far with loss of ability to function dependently, memory deficits. Suspected dementia. Please follow-up with neurology for additional assessment. Continue replacement of vitamin B12. For atrial fibrillation, continue metoprolol. If risk of fall creases, consider addition of aspirin for stroke risk reduction. Consider anticoagulation, although not likely to be safe. Monitoring blood pressures for hypertension. Optimize control. Continue reassessment of osteoarthritis, degenerative changes in knees and right shoulder. Discharge Attestations Time Spent in Discharge Care*: greater than 30 min Quality Metrics Clinical Quality Measures [ No reported AMI, CVA or VTE this stay] Coding Level of Care Code Acute Chg FW DC note Diagnoses Unable to function independently Z78.9 Acute confusion R41.0 Atrial fibrillation by electrocardiography I48.91 Fall W19.XXXA HTN (hypertension) I10 Shoulder pain M25.519
--- NOTE | 2021-09-26 13:22 | PC.NURSE ---
Report called Nina COMBS at [facility] at this time.
[2021-09-26 16:00] VITALS: BP 117/82; PULSE 80; RESP 18; TEMP 36.8; O2SAT 96
[2021-09-26 19:08] VITALS: BP 117/82; PULSE 80; RESP 18; TEMP 36.8; O2SAT 96
--- NOTE | 2021-09-26 19:10 | PC.NURSE ---
Patient transported to [facility] by EMS at this time.
== END 2021-09-26 07:10 | disposition skilled nursing facility (03) ==
LOC: ER 15:45 → ER IP 18:23 → MEDSURG 18:46
PROVIDERS: Admitting Provider Internal Medicine; Emergency Provider Emergency Medicine; Visit Provider Internal Medicine
DX: G30.9 Alzheimer's disease, unspecified (principal); F02.80 Dementia in other diseases classified elsewhere, unspecified severity, without behavioral disturbance, psychotic disturbance, mood disturbance, and anxiety; R41.0 Disorientation, unspecified; I48.91 Unspecified atrial fibrillation; Z91.81 History of falling; I10 Essential (primary) hypertension; M25.511 Pain in right shoulder; M17.0 Bilateral primary osteoarthritis of knee; F32.9 Major depressive disorder, single episode, unspecified; I65.23 Occlusion and stenosis of bilateral carotid arteries
CPT/HCPCS: 36415; 70450; 70551; 71045; 73030; 80053; 80307; 81003; 82140; 82550; 82607; 82746; 83690; 84439; 84443; 84484; 85025; 87426; 93005; 93880; 96372; 97110; 97161; 97167; 97530; 97535; 99285; C8929; G0378; J3420; J7030; Q9956

== ENCOUNTER 2023-08-15 18:37 | Emergency (ER) | payer OTHER, SELFPAY ==
[2023-08-15 18:44] VITALS: BP 134/81; PULSE 65; RESP 17; TEMP 36.8; O2SAT 98
--- NOTE | 2023-08-15 18:44 | CTR_ITS ---
PROCEDURE INFORMATION: Exam: CT Head Without Contrast Exam date and time: 08/15/2023 7:09 PM Age: 82 years old Clinical indication: Injury or trauma; Fall; Blunt trauma (contusions or hematomas) and concussion/head injury; Consciousness not specified TECHNIQUE: Imaging protocol: Computed tomography of the head without contrast. Radiation optimization: All CT scans at this facility use at least one of these dose optimization techniques: automated exposure control; mA and/or kV adjustment per patient size (includes targeted exams where dose is matched to clinical indication); or iterative reconstruction. COMPARISON: MR head wo con* [id number] 09/18/2021 9:27 AM RADIATION DOSE METRICS: Total DLP (mGy-cm): 1126.78 FINDINGS: Brain: There is diffuse cerebral atrophy present, consistent with this patient's age. Periventricular and subcortical white matter low densities are present which at this age likely represent microvascular ischemic change. Small old infarct involves the inferior right frontal lobe. There are chronic lacunar infarcts in the basal ganglia and internal/external capsules.No evidence for large acute ischemic infarction. Please note acute ischemia can be occult by head CT. No evidence for acute intracranial hemorrhage. Cerebral ventricles: No ventriculomegaly. Paranasal sinuses: See Bones finding. Mastoid air cells: Visualized mastoid air cells are well aerated. Bones: Bilateral nasal bone fractures with adjacent soft tissue hematoma. There is hemorrhagic fluid in the nasal passages. A small amount of fluid is present in the maxillary sinuses as well. There is paranasal sinus mucosal thickening. Soft tissues: See Bones finding. Vasculature: Calcified plaque is present within the carotid siphons. CT/CT head wo con* [id number] IMPRESSION: 1. There are senescent changes of the brain as described above. No evidence for large acute ischemic infarction or acute intracranial injury. 2. Bilateral nasal bone fractures with soft tissue hematoma and hemorrhagic fluid in the nasal passages and maxillary sinuses.
--- NOTE | 2023-08-15 18:44 | ED_ITS ---
Documented by User: VINCE Sellers 08/15/23 20:07 HPI - Fall General: Chief Complaint: Fall Stated Complaint: FACIAL TRAUMA S/P FALL Time Seen by Provider: 08/15/23 18:41 History of Present Illness: 82-year-old male was brought in by EMS f or concerns of fall injury. Patient was up in his wheelchair and was leaning out of his wheelchair and felt frontwards hitting his face to the ground. No loss of consciousness. Patient has an abrasion to the nasal bridge and some blood in both nose that is stopped. Patient is very hard of hearing. Patient resides in a chcf at [facility]. Patient's GCS is 15 at this time. Review of Systems General: Reports: 10 or more systems reviewed and unremarkable except in HPI and below PFSH ED PFSH: Medical History (Updated 08/15/23 @ 20:04 by VINCE Sellers) HTN (hypertension) Depression Arthritis Surgical History (System 10/14/21 @ 15:32 by Moraima Munoz) No significant past surgical history Family History Other No significant family history Social History (System 10/14/21 @ 15:32 by Moraima Munoz) Smoking and tobacco/nicotine status: former use of tobacco/nicotine Alcohol intake: never Substance/Drug Use: never Lives independently: Yes Household members: none Marital status: / Number of children: 10 Physical Exam Const: COMMON NORMALS: alert HENMT: COMMON NORMALS: atraumatic HEAD & SCALP: atraumatic NOSE: Epistaxis present (Bilateral nares dry blood) and Other nasal findings present (Abrasion ) Neck/C-Spine: COMMON NORMALS: full ROM Resp: COMMON NORMALS: normal respiratory effort and clear to auscultation bilaterally AUSCULTATION: clear to auscultation bilaterally Cardio: COMMON NORMALS: regular rate and regular rhythm RATE: regular rate RHYTHM: regular rhythm GI: COMMON NORMALS: non-tender Back/Pelvis: COMMON NORMALS: thoracic and lumbar spine normal to inspection Extremity: COMMON NORMALS: full ROM Neuro: SENSORIUM/ORIENTATION: Yes alert Skin: COMMON NORMALS: turgor normal GENERAL SKIN EXAM: turgor normal Course Vital Signs: Vital signs: Vital Signs Temperature 98.3 F 08/15/23 18:44 Pulse Rate 61 08/15/23 20:10 Respiratory Rate 18 08/15/23 20:10 Blood Pressure 120/83 08/15/23 20:10 Pulse Oximetry 99 08/15/23 20:10 Oxygen Delivery Me thod Room Air 08/15/23 18:44 MDM - Fall Medical Decision Making Patient presents with injuries to the midface. Patient has bruising and swelling to the nasal bridge with a superficial abrasion. Patient has dried blood in both naris. Respirations are even. Patient moves neck without difficulty. Patient is nonambulatory and resides in the chcf in [facility]. Differential diagnosis includes intracranial bleeding, skull fracture, nasal bone fracture, cervical neck injury. CT of the head and cervical spine noted no acute fracture or intracranial bleeding. Maxillofacial bones noted bilateral nasal bone fractures. Reviewed exam with patient recommended follow- up with ENT for further evaluation nasal bone fracture and other treatment. Patient was released back to chcf. Lab Data Radiology Impressions Cervical Spine CT 08/15/23 18:44 IMPRESSION: 1. There are degenerative changes as described above. No evidence for acute fracture. 2. C7 vertebral body lesion. Top differential is benign hemangioma. Consider MRI of the cervical spine for further evaluation as clinically warranted. Face CT 08/15/23 18:44 IMPRESSION: Bilateral nasal bone fractures with soft tissue hematoma and hemorrhagic fluid in the maxillary sinuses and nasal passages. Head CT 08/15/23 18:44 IMPRESSION: 1. There are senescent changes of the brain as described above. No evidence for large acute ischemic infarction or acute intracranial injury. 2. Bilateral nasal bone fractures with soft tissue hematoma and hemorrhagic fluid in the nasal passages and maxillary sinuses. All radiology interpretation(s) finalized by discharge Discharge Plan Discharge Patient Disposition: Home Clinical Impression: Head injury Qualifiers: Encounter type: initial encounter Qualified Code(s): S09.90XA - Unspecified injury of head, initial encounter Fracture of nasal bone Qualifiers: Encounter type: initial encounter Fracture type: closed Qualified Code(s): S02.2XXA - Fracture of nasal bones, initial encounter for closed fracture Condition: Stable Prescriptions: No Action Vitamin B-12 1,000 mcg Tablet 1,000 mcg PO DAILY Qty: 90 0RF metoprolol tartrate 25 mg Tablet 25 mg PO BID@0900,2100 Qty: 90 0RF acetaminophen 650 mg tablet extended release 650 mg PO Q8H PRN (Reason: pain) Qty: 90 0RF atorvastatin 40 mg tablet 40 mg PO QPM Qty: 90 0RF Discharge Orders: Discharge ED (Routine); Ordered 08/15/23 Ordered By: Giovanny Clifford Discharge Diet: Usual diet Discharge Activity: Increase activity as tolerated Patient Instructions: Nasal Fracture (ED) Activity Restrictions/Additional Instructions: Drink plenty of water and fluids. Use Afrin spray 1 to 2 sprays each nostril 3 times a day for the next 3 days to help with nasal congestion. Follow-up with research greenhouse supervisor for repeat evaluation in 1 week for consideration of further treatment. Coding Level of Care Code ED Analysis Intern for Chg Fwd Documented by User: Neil Magallon, 08/15/23 23:03 HPI - Fall General: Chief Complaint: Fall Stated Complaint: FACIAL TRAUMA S/P FALL Time Seen by Provider: 08/15/23 18:41 [facility] ED PFSH: Medical History (Updated 08/15/23 @ 20:04 by VINCE Sellers) HTN (hypertension) Depression Arthritis Surgical History (System 10/14/21 @ 15:32 by Moraima Munoz) No significant past surgical history Family History Other No significant family history Social History (System 10/14/21 @ 15:32 by Moraima Munoz) Smoking and tobacco/nicotine status: former use of tobacco/nicotine Alcohol intake: never Substance/Drug Use: never Lives independently: Yes Household members: none Marital status: / Number of children: 10 Course Vital Signs: Vital signs: Vital Signs Temperature 98.3 F 08/15/23 18:44 Pulse Rate 61 08/15/23 20:10 Respiratory Rate 18 08/15/23 20:10 Blood Pressure 120/83 08/15/23 20:10 Pulse Oximetry 99 08/15/23 20:10 Oxygen Delivery Me thod Room Air 08/15/23 18:44 MDM - Fall Medical Decision Making Patient presents with injuries to the midface. Patient has bruising and swelling to the nasal bridge with a superficial abrasion. Patient has dried blood in both naris. Respirations are even. Patient moves neck without difficulty. Patient is nonambulatory and resides in the chcf in [facility]. Differential diagnosis includes intracranial bleeding, skull fracture, nasal bone fracture, cervical neck injury. CT of the head and cervical spine noted no acute fracture or intracranial bleeding. Maxillofacial bones noted bilateral nasal bone fractures. Reviewed exam with patient recommended follow- up with ENT for further evaluation nasal bone fracture and other treatment. Patient was released back to chcf. This patient was originally seen by VINCE Trevizo.? I agree with his history, evaluation, and treatment. Lab Data Radiology Impressions Cervical Spine CT 08/15/23 18:44 IMPRESSION: 1. There are degenerative changes as described above. No evidence for acute fracture. 2. C7 vertebral body lesion. Top differential is benign hemangioma. Consider MRI of the cervical spine for further evaluation as clinically warranted. Face CT 08/15/23 18:44 IMPRESSION: Bilateral nasal bone fractures with soft tissue hematoma and hemorrhagic fluid in the maxillary sinuses and nasal passages. Head CT 08/15/23 18:44 IMPRESSION: 1. There are senescent changes of the brain as described above. No evidence for large acute ischemic infarction or acute intracranial injury. 2. Bilateral nasal bone fractures with soft tissue hematoma and hemorrhagic fluid in the nasal passages and maxillary sinuses. Discharge Plan Discharge Patient Disposition: Home Clinical Impression: Head injury Qualifiers: Encounter type: initial encounter Qualified Code(s): S09.90XA - Unspecified injury of head, initial encounter Fracture of nasal bone Qualifiers: Encounter type: initial encounter Fracture type: closed Qualified Code(s): S02.2XXA - Fracture of nasal bones, initial encounter for closed fracture Condition: Stable Prescriptions: No Action Vitamin B-12 1,000 mcg Tablet 1,000 mcg PO DAILY Qty: 90 0RF metoprolol tartrate 25 mg Tablet 25 mg PO BID@0900,2100 Qty: 90 0RF acetaminophen 650 mg tablet extended release 650 mg PO Q8H PRN (Reason: pain) Qty: 90 0RF atorvastatin 40 mg tablet 40 mg PO QPM Qty: 90 0RF Discharge Orders: Discharge ED (Routine); Ordered 08/15/23 Ordered By: Giovanny Clifford Discharge Diet: Usual diet Discharge Activity: Increase activity as tolerated Patient Instructions: Nasal Fracture (ED) Activity Restrictions/Additional Instructions: Drink plenty of water and fluids. Use Afrin spray 1 to 2 sprays each nostril 3 times a day for the next 3 days to help with nasal congestion. Follow-up with research greenhouse supervisor for repeat evaluation in 1 week for consideration of further treatment. Coding Level of Care Code ED Analysis Intern for Rito Jones
--- NOTE | 2023-08-15 18:44 | CTR_ITS ---
PROCEDURE INFORMATION: Exam: CT Maxillofacial Without Contrast Exam date and time: 08/15/2023 7:12 PM Age: 82 years old Clinical indication: Injury or trauma; Fall; Blunt trauma (contusions or hematomas); Forehead and nose; Additional info: Fall, facial injury TECHNIQUE: Imaging protocol: Computed tomography of the face without contrast. Radiation optimization: All CT scans at this facility use at least one of these dose optimization techniques: automated exposure control; mA and/or kV adjustment per patient size (includes targeted exams where dose is matched to clinical indication); or iterative reconstruction. COMPARISON: CT head wo con* [id number] 08/15/2023 7:09 PM RADIATION DOSE METRICS: Total DLP (mGy-cm): 784.51 FINDINGS: Orbital cavities: Orbits are normal. Globes are unremarkable. Bones: See Soft tissues finding. Paranasal sinuses: There is paranasal sinus mucosal thickening. Soft tissues: Bilateral nasal bone fractures with soft tissue hematoma and hemorrhagic fluid in the maxillary sinuses and nasal passages. Vasculature: Calcified plaque is present within the carotid siphons. Dental: Periodontal disease with multiple missing maxillary and mandibular teeth. Pharynx: There is frothy fluid in the nasopharynx and oropharynx. CT/CT facial bones wo con* [id number] IMPRESSION: Bilateral nasal bone fractures with soft tissue hematoma and hemorrhagic fluid in the maxillary sinuses and nasal passages.
--- NOTE | 2023-08-15 18:44 | CTR_ITS ---
PROCEDURE INFORMATION: Exam: CT Cervical Spine Without Contrast Exam date and time: 08/15/2023 7:14 PM Age: 82 years old Clinical indication: Injury or trauma; Fall; Blunt trauma TECHNIQUE: Imaging protocol: Computed tomography of the cervical spine without contrast. Radiation optimization: All CT scans at this facility use at least one of these dose optimization techniques: automated exposure control; mA and/or kV adjustment per patient size (includes targeted exams where dose is matched to clinical indication); or iterative reconstruction. COMPARISON: CT facial bones wo con* [id number] 08/15/2023 7:12 PM RADIATION DOSE METRICS: Total DLP (mGy-cm): 1215.57 FINDINGS: Bones: Grade 1 degenerative anterolisthesis of C7 on T1. There is a lesion in the C7 vertebra with possible corduroy type internal matrix. This is not well seen. There are degenerative changes throughout the visualized spine including marginal osteophyte formations, endplate degenerative changes, and facet arthropathy. Multilevel disc space narrowing. Pharynx: There is frothy fluid in the nasopharynx and oropharynx. Lungs: Lung apices are normal. Vasculature: Multi-vessel atherosclerotic disease. Soft tissues: Unremarkable. CT/CT cervical spin wo con* [id number] IMPRESSION: 1. There are degenerative changes as described above. No evidence for acute fracture. 2. C7 vertebral body lesion. Top differential is benign hemangioma. Consider MRI of the cervical spine for further evaluation as clinically warranted.
--- NOTE | 2023-08-15 19:01 | W.ED.FALL ---
HPI - Fall General: Chief Complaint: Fall Stated Complaint: FACIAL TRAUMA S/P FALL Time Seen by Provider: 08/15/23 18:41 Source: EMS Mode of arrival: EMS [facility] ED PFSH: Medical History (System 10/14/21 @ 15:32 by Moraima Munoz) HTN (hypertension) Depression Arthritis Surgical History (System 10/14/21 @ 15:32 by Moraima Munoz) No significant past surgical history Family History Other No significant family history Social History (System 10/14/21 @ 15:32 by Moraima Munoz) Smoking and tobacco/nicotine status: former use of tobacco/nicotine Alcohol intake: never Substance/Drug Use: never Lives independently: Yes Household members: none Marital status: / Number of children: 10 Course Vital Signs: Vital signs: Vital Signs Temperature 98.3 F 08/15/23 18:44 Pulse Rate 65 08/15/23 18:44 Respiratory Rate 17 08/15/23 18:44 Blood Pressure 134/81 08/15/23 18:44 Pulse Oximetry 98 08/15/23 18:44 Oxygen Delivery Me thod Room Air 08/15/23 18:44 Discharge Plan Discharge Condition: Stable Prescriptions: No Action Vitamin B-12 1,000 mcg Tablet 1,000 mcg PO DAILY Qty: 90 0RF metoprolol tartrate 25 mg Tablet 25 mg PO BID@0900,2100 Qty: 90 0RF acetaminophen 650 mg tablet extended release 650 mg PO Q8H PRN (Reason: pain) Qty: 90 0RF atorvastatin 40 mg tablet 40 mg PO QPM Qty: 90 0RF Coding Level of Care Code ED [employer] 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
[2023-08-15 20:10] VITALS: BP 120/83; PULSE 61; RESP 18; O2SAT 99
[2023-08-15] MEDS: oxymetazoline 0.05% Nasal Spray 15 mL 2 SPRAY NOSTRIL-B (20:24)
[2023-08-16 09:21] VITALS: PULSE 71; RESP 73; O2SAT 92
[2023-08-16 11:47] VITALS: PULSE 75; RESP 17; O2SAT 92
== END 2023-08-16 11:48 | disposition home or self-care (01) ==
PROVIDERS: Emergency Provider Nurse Practitioner Family
DX: S02.2XXA Fracture of nasal bones, initial encounter for closed fracture (principal); I10 Essential (primary) hypertension; Z87.891 Personal history of nicotine dependence; S00.31XA Abrasion of nose, initial encounter; W05.0XXA Fall from non-moving wheelchair, initial encounter
CPT/HCPCS: 70450; 70486; 72125; 99284